=== PATIENT | female | born 1965 | race Hispanic/Latino ===

== ENCOUNTER → 2017-12-08 | Outpatient (CLI) | payer OTHER ==
[~2017-12-08] MED LIST: DOCU100T PO; LACT1CAP68 PO; PANT40TA25 PO; SIMV20TA6 PO; VALS1TAB2 PO
[2017-12-08 16:39] LABS: CREATININE 0.6 mg/dL (0.5-1.5)
== END | disposition home or self-care (01) ==
LOC: LAB 15:49
PROVIDERS: ATTEND Surgery
DX: K43.2 Incisional hernia without obstruction or gangrene (principal)
CPT/HCPCS: 36415; 82565; 84520

== ENCOUNTER → 2017-12-10 | Outpatient (CLI) | payer OTHER ==
[~2017-12-10] MED LIST changes: +IOPAMIDOL-370 75 ML VIAL IV ONE
== END | disposition home or self-care (01) ==
LOC: RAH 07:26
PROVIDERS: ATTEND Surgery
DX: K43.2 Incisional hernia without obstruction or gangrene (principal); K57.30 Diverticulosis of large intestine without perforation or abscess without bleeding; Z90.710 Acquired absence of both cervix and uterus
CPT/HCPCS: 74177; Q9967

== ENCOUNTER 2018-07-28 07:10 | Inpatient (IN) | payer OTHER ==
[~2018-07-28] VITALS: Ht 165.1 cm; Wt 104.3 kg
[~2018-07-28 07:10] MED LIST changes: -IOPAMIDOL-370 75 ML VIAL IV ONE
[2018-07-28] MEDS ORDERED: ONDANSETRON HCL 4 MG/2 ML VIAL ONE ×2 (07:22→10:22)
[2018-07-28] MEDS ORDERED: MORPHINE SULFATE 4 MG/1ML SYG ONE (07:23)
[2018-07-28 07:41] LABS: BASOPHILS % (AUTO) 0.2 % (0.0-5.0); EOSINOPHILS % (AUTO) 0.1 % (0.0-8.0); HEMATOCRIT 43.9 % (36-48); LYMPHOCYTES % (AUTO) 6.8 % (21.0-51.0); MEAN CORPUSCULAR HEMOGLOBIN 29.7 pg (27.0-33.0); MEAN CORPUSCULAR HGB CONC 33.8 g/dL (32.0-36.0); MEAN CORPUSCULAR VOLUME 88.1 fL (79-99); MONOCYTES % (AUTO) 5.1 % (3.0-13.0); NEUTROPHILS % (AUTO) 87.8 % (40.0-77.0); PLATELET COUNT (AUTO) 271 K/uL (130-400); RED BLOOD CELL COUNT(AUTO) 4.98 MIL/uL (4.00-5.50); RED CELL DISTRIBUTION WIDTH 12.8 % (11.0-15.5); WHITE BLOOD COUNT (AUTO) 11.6 K/uL (4.8-10.8)
[2018-07-28 07:46] LABS: CREATININE 0.7 mg/dL (0.5-1.5); POTASSIUM 3.3 mmol/L (3.5-5.1)
[2018-07-28 07:52] LABS: ALBUMIN 4.1 g/dL (3.5-5.0); BILIRUBIN,TOTAL 0.3 mg/dL (0.2-1.0); TOTAL PROTEIN, SERUM 8.5 g/dL (6.0-8.3)
[2018-07-28 07:56] LABS: APPEARANCE,URINE Cloudy (CLEAR); BILIRUBIN,URINE Negative (NEGATIVE); COLOR,URINE Dark Yellow (YELLOW); GLUCOSE, URINE (UA) Negative (NEGATIVE); KETONES,URINE Trace mg/dL (NEGATIVE); LEUKOCYTE ESTERASE ,URINE Small (NEGATIVE); NITRATE,URINE Negative (NEGATIVE); OCCULT BLOOD,URINE Small (NEGATIVE); PROTEIN,URINE POS 2+ (NEGATIVE)
[2018-07-28] MEDS ORDERED: IOHEXOL-350 75 ML VIAL IV ONE (08:09)
[2018-07-28 09:21] LABS: BACTERIA,URINE Rare /HPF (None Seen); SQUAMOUS EPITHELIAL CELL,UR Moderate /HPF (0-2); WBC,URINE 0-1 /HPF (0-1)
[2018-07-28] MEDS ORDERED: LACTATED RINGERS 1000ML 1,000 ML IV ONE (09:53)
[2018-07-28] MEDS ORDERED: MORPHINE SULFATE 2 MG/ML 1ML SYG ONE (10:22)
[2018-07-28 14:30] VITALS: BP 142/83
[2018-07-28] MEDS ORDERED: MORPHINE SULFATE 2 MG/ML 1ML SYG IVP PRN (14:45)
[2018-07-28] MEDS ORDERED: ONDANSETRON HCL MDV 20ML 2 MG/ML VIAL IVP PRN (14:45)
[2018-07-28] MEDS ORDERED: LOSA50TA25 PO (14:55)
[2018-07-28] MEDS ORDERED: LOSA1TAB54 PO (15:26)
[2018-07-28 15:50] VITALS: BP 108/78
[2018-07-28 19:34] VITALS: BP 128/78
[2018-07-28] MEDS: LACTATED RINGERS 1000ML 1,000 ML IV SCH (21:12)
[2018-07-28] MEDS: FAMOTIDINE/PF 20 MG/2 ML VIAL IV SCH (23:12)
[2018-07-28 23:37] VITALS: BP 125/69
[2018-07-29 04:00] VITALS: BP 136/69
[2018-07-29 05:02] LABS: HEMATOCRIT 36.5 % (36-48); MEAN CORPUSCULAR HEMOGLOBIN 30.5 pg (27.0-33.0); MEAN CORPUSCULAR HGB CONC 34.5 g/dL (32.0-36.0); MEAN CORPUSCULAR VOLUME 88.6 fL (79-99); PLATELET COUNT (AUTO) 239 K/uL (130-400); RED BLOOD CELL COUNT(AUTO) 4.12 MIL/uL (4.00-5.50); RED CELL DISTRIBUTION WIDTH 13.4 % (11.0-15.5); WHITE BLOOD COUNT (AUTO) 8.3 K/uL (4.8-10.8)
[2018-07-29 05:17] LABS: CREATININE 0.6 mg/dL (0.5-1.5); POTASSIUM 3.2 mmol/L (3.5-5.1)
[2018-07-29] MEDS: LACTATED RINGERS 1000ML 1,000 ML IV SCH ×3 (05:40→22:45)
[2018-07-29 07:38] VITALS: BP 123/67
[2018-07-29] MEDS: FAMOTIDINE/PF 20 MG/2 ML VIAL IV SCH ×2 (08:36→20:02)
[2018-07-29 12:00] VITALS: BP 129/72
[2018-07-29 16:00] VITALS: BP 137/73
[2018-07-29] MEDS ORDERED: LIDOCAINE HCL-MPF 1% 2ML VIAL IVP PRN (16:00)
[2018-07-29] MEDS: POTASSIUM CHLORIDE 20MEQ/100ML 100 ML IV PRN ×2 (16:28→21:43)
[2018-07-29 19:43] VITALS: BP 135/71
[2018-07-29] MEDS ORDERED: LIDOCAINE HCL-MPF 1% 5ML AMP IJ PRN (20:59)
[2018-07-29] MEDS ORDERED: LIDOCAINE HCL MPF 1% 5ML VIAL ONE (21:40)
[2018-07-30 00:29] VITALS: BP 114/67
[2018-07-30 04:51] VITALS: BP 132/69
[2018-07-30 05:34] LABS: BASOPHILS % (AUTO) 0.5 % (0.0-5.0); EOSINOPHILS % (AUTO) 1.4 % (0.0-8.0); LYMPHOCYTES % (AUTO) 27.9 % (21.0-51.0); MEAN CORPUSCULAR HEMOGLOBIN 29.9 pg (27.0-33.0); MEAN CORPUSCULAR HGB CONC 33.3 g/dL (32.0-36.0); MEAN CORPUSCULAR VOLUME 89.8 fL (79-99); MONOCYTES % (AUTO) 9.5 % (3.0-13.0); NEUTROPHILS % (AUTO) 60.7 % (40.0-77.0); PLATELET COUNT (AUTO) 203 K/uL (130-400); RED BLOOD CELL COUNT(AUTO) 4.01 MIL/uL (4.00-5.50); RED CELL DISTRIBUTION WIDTH 13.3 % (11.0-15.5); WHITE BLOOD COUNT (AUTO) 7.5 K/uL (4.8-10.8)
[2018-07-30 05:48] LABS: CREATININE 0.6 mg/dL (0.5-1.5); POTASSIUM 3.3 mmol/L (3.5-5.1)
[2018-07-30] MEDS: POTASSIUM CHLORIDE 20MEQ/100ML 100 ML IV PRN ×2 (06:25→10:54)
[2018-07-30 08:29] VITALS: BP 137/71
[2018-07-30] MEDS: FAMOTIDINE/PF 20 MG/2 ML VIAL IV SCH ×2 (08:42→19:52)
[2018-07-30] MEDS: LACTATED RINGERS 1000ML 1,000 ML IV SCH ×2 (10:54→19:53)
[2018-07-30 11:57] VITALS: BP 159/88
[2018-07-30] MEDS ORDERED: KETOROLAC TROMETHAMINE 30MG/ML IV PRN (14:15)
[2018-07-30 16:58] VITALS: BP 139/76
[2018-07-30 19:52] VITALS: BP 145/82
[2018-07-31 00:03] VITALS: BP 113/62
[2018-07-31 04:00] VITALS: BP 121/66
[2018-07-31] MEDS: LACTATED RINGERS 1000ML 1,000 ML IV SCH (05:02)
[2018-07-31 06:15] LABS: CREATININE 0.6 mg/dL (0.5-1.5); POTASSIUM 3.7 mmol/L (3.5-5.1)
[2018-07-31 11:51] VITALS: BP 143/85
[2018-07-31 12:02] LABS: BASOPHILS % (AUTO) 0.3 % (0.0-5.0); HEMATOCRIT 34.4 % (36-48); LYMPHOCYTES % (AUTO) 26.8 % (21.0-51.0); MEAN CORPUSCULAR HEMOGLOBIN 31.1 pg (27.0-33.0); MEAN CORPUSCULAR HGB CONC 34.9 g/dL (32.0-36.0); MEAN CORPUSCULAR VOLUME 89.4 fL (79-99); MONOCYTES % (AUTO) 10.3 % (3.0-13.0); NEUTROPHILS % (AUTO) 60.6 % (40.0-77.0); PLATELET COUNT (AUTO) 213 K/uL (130-400); RED BLOOD CELL COUNT(AUTO) 3.85 MIL/uL (4.00-5.50); RED CELL DISTRIBUTION WIDTH 12.9 % (11.0-15.5); WHITE BLOOD COUNT (AUTO) 6.6 K/uL (4.8-10.8)
== END 2018-07-31 13:32 | disposition home or self-care (01) | DRG 395 ==
LOC: EDH 07:10 → EDHIP 09:35 → 4BH 14:06
PROVIDERS: ADMIT Surgery; ATTEND Surgery
PROC: 0D9670Z Drainage of Stomach with Drainage Device, Via Natural or Artificial Opening (ICD-10-PCS; principal; 2018-07-28)
DX: K43.0 Incisional hernia with obstruction, without gangrene (principal); Z90.710 Acquired absence of both cervix and uterus; I10 Essential (primary) hypertension
CPT/HCPCS: 36415; 74021; 74177; 80048; 80053; 81001; 82550; 83690; 84484; 85025; 85027; 93005; J1885; J2270; J2405; J3480; J3490; J7120; Q9967

== ENCOUNTER → 2018-10-19 | Outpatient (CLI) | payer OTHER ==
[~2018-10-19] MED LIST changes: +LOSA1TAB54 PO; -PANT40TA25 PO; -VALS1TAB2 PO
== END | disposition home or self-care (01) ==
LOC: RAH 14:43
DX: Z12.31 Encounter for screening mammogram for malignant neoplasm of breast (principal)
CPT/HCPCS: 77067

== ENCOUNTER 2019-01-12 08:12 | Day surgery (SDC) | payer OTHER ==
[~2019-01-12] VITALS: Ht 160 cm; Wt 107.2 kg
[~2019-01-12 08:12] MED LIST changes: -DOCU100T PO; -LACT1CAP68 PO; +SODIUM CHLORIDE 0.9% 1000ML 1,000 ML IV ONE
[2019-01-12 08:35] VITALS: BP 144/73
[2019-01-12] MEDS ORDERED: PROPOFOL 10 MG/ML 20ML VIAL IV ONE (09:03)
[2019-01-12 09:06] VITALS: BP 98/58
[2019-01-12 09:11] VITALS: BP 110/72
[2019-01-12 09:16] VITALS: BP 125/75
== END 2019-01-12 09:45 | disposition home or self-care (01) ==
LOC: DAH 08:12 → ENDO 08:12
PROVIDERS: ATTEND Internal Medicine
DX: K21.0 Gastro-esophageal reflux disease with esophagitis (principal); K44.9 Diaphragmatic hernia without obstruction or gangrene; K31.7 Polyp of stomach and duodenum; K31.89 Other diseases of stomach and duodenum; I10 Essential (primary) hypertension; E78.5 Hyperlipidemia, unspecified; Z98.890 Other specified postprocedural states; Z90.710 Acquired absence of both cervix and uterus; Z79.899 Other long term (current) drug therapy; Z68.41 Body mass index [BMI] 40.0-44.9, adult; E66.9 Obesity, unspecified
CPT/HCPCS: 43239; A4606; J2704; J7030

== ENCOUNTER 2019-02-09 05:27 | Day surgery (SDC) | payer OTHER ==
[~2019-02-09] VITALS: Ht 160 cm; Wt 104.3 kg
[~2019-02-09 05:27] MED LIST changes: -SODIUM CHLORIDE 0.9% 1000ML 1,000 ML IV ONE
[2019-02-09] MEDS ORDERED: SODIUM CHLORIDE 0.9% 1000ML 1,000 ML IV ONE (05:47)
[2019-02-09 06:00] VITALS: BP 128/78
[2019-02-09] MEDS ORDERED: PROPOFOL 10 MG/ML 20ML VIAL IV ONE (07:12)
[2019-02-09 07:20] VITALS: BP 89/49
[2019-02-09 07:25] VITALS: BP 114/71
[2019-02-09 07:30] VITALS: BP 111/68
--- NOTE | 2019-02-09 07:51 | NUR ---
PT TOLERATED PROCEDURE WELL, NO C/O ABDOMINAL PAIN, POST CARE INSTRUCTIONS GIVEN TO PT AND FAMILY. PT DRIVEN HOME BY FAMILY.
== END 2019-02-09 07:51 | disposition home or self-care (01) ==
LOC: ENDO 05:27 → DAH 05:27 → ENDO 07:51
PROVIDERS: ATTEND Internal Medicine
DX: K63.5 Polyp of colon (principal); K64.0 First degree hemorrhoids; K57.30 Diverticulosis of large intestine without perforation or abscess without bleeding; R19.4 Change in bowel habit; I10 Essential (primary) hypertension; E78.5 Hyperlipidemia, unspecified; Z79.899 Other long term (current) drug therapy; Z68.41 Body mass index [BMI] 40.0-44.9, adult; Z90.710 Acquired absence of both cervix and uterus; Z98.890 Other specified postprocedural states; K44.9 Diaphragmatic hernia without obstruction or gangrene; K21.0 Gastro-esophageal reflux disease with esophagitis
CPT/HCPCS: 45380; A4606; J2704; J7030

== ENCOUNTER → 2019-06-12 | Outpatient (CLI) | payer OTHER | END | disposition home or self-care (01) | LOC: RAH 16:24 | PROVIDERS: ATTEND Physical Medicine & Rehabilitation | DX: M47.812 Spondylosis without myelopathy or radiculopathy, cervical region (principal); M48.02 Spinal stenosis, cervical region | CPT/HCPCS: 72040 ==

== ENCOUNTER → 2019-07-10 | Outpatient (CLI) | payer OTHER | END | disposition home or self-care (01) | LOC: RAH 14:34 | PROVIDERS: ATTEND Physical Medicine & Rehabilitation | DX: M47.22 Other spondylosis with radiculopathy, cervical region (principal); M50.122 Cervical disc disorder at C5-C6 level with radiculopathy | CPT/HCPCS: 72141 ==

== ENCOUNTER → 2019-10-12 | Outpatient (CLI) | payer OTHER ==
[~2019-10-12] MED LIST changes: +SIMV-43 PO; -SIMV20TA6 PO
== END | disposition home or self-care (01) ==
LOC: RAH 16:07
PROVIDERS: ATTEND Physical Medicine & Rehabilitation
DX: M19.011 Primary osteoarthritis, right shoulder (principal)
CPT/HCPCS: 73030

== ENCOUNTER → 2019-10-20 | Outpatient (CLI) | payer OTHER | END | disposition home or self-care (01) | LOC: RAH 15:46 | DX: Z12.31 Encounter for screening mammogram for malignant neoplasm of breast (principal) | CPT/HCPCS: 77067 ==

== ENCOUNTER → 2019-12-25 | Outpatient (CLI) | payer OTHER | END | disposition home or self-care (01) | LOC: RAH 07:22 | PROVIDERS: ATTEND Physical Medicine & Rehabilitation | DX: M75.111 Incomplete rotator cuff tear or rupture of right shoulder, not specified as traumatic (principal); Y93.89 Activity, other specified; Y92.89 Other specified places as the place of occurrence of the external cause; Y99.8 Other external cause status | CPT/HCPCS: 73221 ==

== ENCOUNTER 2020-03-28 09:50 | Day surgery (SDC) | payer OTHER ==
[2020-03-26 09:01] LABS: BASOPHILS % (AUTO) 0.5 % (0.0-5.0); HEMATOCRIT 39.2 % (36-48); LYMPHOCYTES % (AUTO) 32.6 % (21.0-51.0); MEAN CORPUSCULAR HEMOGLOBIN 29.9 pg (27.0-33.0); MEAN CORPUSCULAR HGB CONC 33.9 g/dL (32.0-36.0); MEAN CORPUSCULAR VOLUME 88.1 fL (79-99); MONOCYTES % (AUTO) 8.4 % (3.0-13.0); NEUTROPHILS % (AUTO) 56.2 % (40.0-77.0); PLATELET COUNT (AUTO) 249 K/uL (130-400); RED BLOOD CELL COUNT(AUTO) 4.45 MIL/uL (4.00-5.50); RED CELL DISTRIBUTION WIDTH 13.2 % (11.0-15.5); WHITE BLOOD COUNT (AUTO) 6.5 K/uL (4.8-10.8)
[2020-03-26 09:11] LABS: CREATININE 0.7 mg/dL (0.5-1.5); POTASSIUM 3.3 mmol/L (3.5-5.1)
[2020-03-26 11:29] VITALS: BP 119/76
--- NOTE | 2020-03-26 18:13 | NUR ---
LABS INFORMED DR. MARTIN OF ABNORMAL POTASSIUM. ORDERS RECEIVED TO REDRAW POTASSIUM ON AM OF PROCEDURE AND IF PT TAKE DIURETICS, HOLD ON AM OF PROCEDURE.
[2020-03-28] VITALS (16 sets, daily range): BP systolic 107–135; BP diastolic 62–88
[~2020-03-28] VITALS: Ht 160 cm; Wt 111.4 kg
[~2020-03-28 09:50] MED LIST changes: +CEFAZOLIN SODIUM 1 GM VIAL IVP SCH; +HYDR25TA PO; +LOSA100T58 PO; -LOSA1TAB54 PO; +OMEP20CA12 PO
[2020-03-28] MEDS ORDERED: LACTATED RINGERS 1000ML 1,000 ML IV ONE (13:25)
[2020-03-28] MEDS ORDERED: EPINEPHRINE 1 MG/ML 30ML VIAL IJ ONE (15:18)
[2020-03-28] MEDS ORDERED: SUCCINYLCHOLINE 200MG/10ML SYR ONE (15:45)
[2020-03-28] MEDS ORDERED: ROPIVACAINE 0.5% 5MG/ML 30ML IJ ONE ×2 (15:45→15:48)
[2020-03-28] MEDS ORDERED: LIDOCAINE PF 2% 5ML ABBOJECT ONE (15:45)
[2020-03-28] MEDS ORDERED: PROPOFOL 10 MG/ML 20ML VIAL IV ONE (15:45)
[2020-03-28] MEDS ORDERED: ROCURONIUM 10MG/1ML SYR 10 MG/ML ML ONE (15:48)
[2020-03-28] MEDS ORDERED: FENTANYL CITRATE PF 50 MCG/1 ML 2ML VIAL ONE (15:49)
[2020-03-28] MEDS ORDERED: DEXAMETHASONE SOD PHOSPHATE 4 MG/ML 1ML VIAL ONE (16:14)
[2020-03-28] MEDS ORDERED: GLYCOPYRROLATE 1 MG/5 ML SYRINGE ONE (16:15)
[2020-03-28] MEDS ORDERED: ONDANSETRON HCL 4 MG/2 ML VIAL ONE (16:15)
[2020-03-28] MEDS ORDERED: NEOSTIGMINE 5MG/5ML SYR IV ONE (16:15)
[2020-03-28] MEDS ORDERED: NAPR-1192 PO (17:37)
[2020-03-28] MEDS ORDERED: HYDR-4457 PO (17:37)
[2020-03-28] MEDS ORDERED: CEPH500B PO (17:37)
--- NOTE | 2020-03-28 18:56 | NUR ---
ASSESSMENT RECEIVED PT FROM COURT [place]. PT [id number]. SLING IN PLACE TO RIGHT ARM. DRSG INTACT AND DRY. SOFT TO TOUCH. DENIES PAIN. CALL LIGHT WITHIN REACH.
--- NOTE | 2020-03-28 19:40 | NUR ---
DISCHARGE ORAL AND WRITTEN DISCHARGE INSTRUCTIONS GIVEN TO PT AND PTS SISTER. DRSG INTACT. NO OOZING, BLEEDING NOTED TO SITE. PRESCRIPTIONS GIVEN TO PTS SISTER ALONG WITH ICE PACK. NO OTHER QUESTIONS AT THIS TIME.
== END 2020-03-28 19:40 | disposition home or self-care (01) ==
LOC: DAH 09:50
PROVIDERS: ATTEND Orthopaedic Surgery
DX: M75.111 Incomplete rotator cuff tear or rupture of right shoulder, not specified as traumatic (principal); M75.41 Impingement syndrome of right shoulder; M19.011 Primary osteoarthritis, right shoulder; G89.29 Other chronic pain; I10 Essential (primary) hypertension; E78.5 Hyperlipidemia, unspecified; Z79.899 Other long term (current) drug therapy; Z90.710 Acquired absence of both cervix and uterus
CPT/HCPCS: 29822; 29824; 29826; 36415 ×2; 64415; 76942; 80048; 84132; 85025; A4215 ×2; A4221 ×2; A4222 ×2; A4223 ×2; A4565; A4600 ×2; A4649 ×4; A4663 ×2; A4930; A6204; J0171; J0330; J0690; J1100; J2001; J2405; J2704; J2710; J2795 ×2; J3010; J3490; J7030; J7120

== ENCOUNTER → 2020-08-22 | Outpatient (CLI) | payer OTHER ==
[~2020-08-22] MED LIST changes: -CEFAZOLIN SODIUM 1 GM VIAL IVP SCH; +CEPH500B PO; +HYDR-4457 PO; +NAPR-1192 PO
== END | disposition home or self-care (01) ==
LOC: OIH 15:46
PROVIDERS: ATTEND Family Medicine
DX: R07.9 Chest pain, unspecified (principal)
CPT/HCPCS: 71046

== ENCOUNTER → 2020-10-21 | Outpatient (CLI) | payer OTHER | END | disposition home or self-care (01) | LOC: RAH 15:56 | PROVIDERS: ATTEND Physician Assistant Medical | DX: Z12.31 Encounter for screening mammogram for malignant neoplasm of breast (principal); N64.89 Other specified disorders of breast | CPT/HCPCS: 77067 ==

== ENCOUNTER 2020-11-19 05:59 | Day surgery (SDC) | payer OTHER ==
[~2020-11-19] VITALS: Ht 160 cm; Wt 110.7 kg
[~2020-11-19 05:59] MED LIST changes: -CEPH500B PO; -HYDR-4457 PO
[2020-11-19] MEDS ORDERED: SODIUM CHLORIDE 0.9% 1000ML 1,000 ML IV ONE (06:45)
[2020-11-19 07:09] VITALS: BP 120/74
[2020-11-19] MEDS ORDERED: PROPOFOL 10 MG/ML 20ML VIAL IV ONE ×2 (09:11)
[2020-11-19 09:30] VITALS: BP 111/76
[2020-11-19 09:35] VITALS: BP 112/68
[2020-11-19 09:40] VITALS: BP 110/72
[2020-11-19 09:45] VITALS: BP 118/76
[2020-11-19 09:50] VITALS: BP 113/64
== END 2020-11-19 10:00 | disposition home or self-care (01) ==
LOC: ENDO 05:59 → DAH 05:59 → ENDO 10:00
PROVIDERS: ATTEND Internal Medicine Gastroenterology
DX: R10.13 Epigastric pain (principal); Z20.828 Contact with and (suspected) exposure to other viral communicable diseases; K29.50 Unspecified chronic gastritis without bleeding; K44.9 Diaphragmatic hernia without obstruction or gangrene; K31.89 Other diseases of stomach and duodenum; K59.04 Chronic idiopathic constipation; K21.00 Gastro-esophageal reflux disease with esophagitis, without bleeding; I10 Essential (primary) hypertension; E78.5 Hyperlipidemia, unspecified; E66.9 Obesity, unspecified; Z86.010 Personal history of colon polyps; Z90.49 Acquired absence of other specified parts of digestive tract; Z98.890 Other specified postprocedural states; Z68.44 Body mass index [BMI] 60.0-69.9, adult
CPT/HCPCS: 43239; A4215; A4221; A4222; A4223; A4606; A4620; A4663; C9803; J2704 ×2; J7030; U0003

== ENCOUNTER → 2021-03-13 | Outpatient (CLI) | payer OTHER ==
[~2021-03-13] MED LIST changes: -NAPR-1192 PO
== END | disposition home or self-care (01) ==
LOC: SHCH 14:18
PROVIDERS: ATTEND Internal Medicine Cardiovascular Disease
DX: I87.2 Venous insufficiency (chronic) (peripheral) (principal); I73.9 Peripheral vascular disease, unspecified; R07.9 Chest pain, unspecified; R00.2 Palpitations
CPT/HCPCS: 93306; 93356; 93925; 93970

== ENCOUNTER → 2021-11-10 | Outpatient (CLI) | payer OTHER ==
[2021-11-10 08:33] LABS: BASOPHILS % (AUTO) 0.5 % (0.0-5.0); EOSINOPHILS % (AUTO) 1.9 % (0.0-8.0); HEMATOCRIT 39.7 % (36-48); MEAN CORPUSCULAR HEMOGLOBIN 29.2 pg (27.0-33.0); MEAN CORPUSCULAR HGB CONC 33.5 g/dL (32.0-36.0); MEAN CORPUSCULAR VOLUME 87.3 fL (79-99); MONOCYTES % (AUTO) 9.2 % (3.0-13.0); NEUTROPHILS % (AUTO) 51.2 % (40.0-77.0); PLATELET COUNT (AUTO) 248 K/uL (130-400); RED BLOOD CELL COUNT(AUTO) 4.55 MIL/uL (4.00-5.50); RED CELL DISTRIBUTION WIDTH 13.2 % (11.0-15.5); WHITE BLOOD COUNT (AUTO) 5.7 K/uL (4.8-10.8)
[2021-11-10 08:42] LABS: CREATININE 0.7 mg/dL (0.5-1.5); POTASSIUM 3.2 mmol/L (3.5-5.1)
[2021-11-10 08:47] LABS: ALBUMIN 3.8 g/dL (3.5-5.0); BILIRUBIN,TOTAL 0.5 mg/dL (0.2-1.0); MAGNESIUM 2.4 mg/dL (1.80-2.40); TOTAL PROTEIN, SERUM 7.6 g/dL (6.0-8.3)
[2021-11-10 08:50] LABS: HEMOGLOBIN A1C 6.2 % (4.0-6.0)
== END | disposition home or self-care (01) ==
LOC: LAB 07:32
PROVIDERS: ATTEND Internal Medicine Cardiovascular Disease
DX: E78.2 Mixed hyperlipidemia (principal); I10 Essential (primary) hypertension
CPT/HCPCS: 36415; 80053; 80061; 83036; 83735; 84100; 85025

== ENCOUNTER 2022-02-11 05:50 | Day surgery (SDC) | payer OTHER ==
[~2022-02-11] VITALS: Ht 160 cm; Wt 104.3 kg
[~2022-02-11 05:50] MED LIST changes: +GABA-529 PO; +LINA145C PO
[2022-02-11] MEDS ORDERED: 0.9%NACL 1000ML 1,000 ML IV ONE (06:13)
[2022-02-11 06:15] VITALS: BP 115/72
[2022-02-11] MEDS ORDERED: PHENYLEPHRINE HCL 10 MG/ML 1ML VIAL IV ONE (06:59)
[2022-02-11] MEDS ORDERED: PROPOFOL 10 MG/ML 20ML VIAL IV ONE (06:59)
[2022-02-11] MEDS ORDERED: FAMOTIDINE 20MG VIAL IV ONE (07:03)
[2022-02-11 07:34] VITALS: BP 107/59
[2022-02-11 07:40] VITALS: BP 115/64
[2022-02-11 07:45] VITALS: BP 109/59
[2022-02-11 07:50] VITALS: BP 103/68
[2022-02-11 08:10] VITALS: BP 108/67
== END 2022-02-11 08:10 | disposition home or self-care (01) ==
LOC: DAH 05:50 → ENDO 05:50
PROVIDERS: ATTEND Internal Medicine Gastroenterology
DX: Z12.11 Encounter for screening for malignant neoplasm of colon (principal); Z20.822 Contact with and (suspected) exposure to COVID-19; K62.1 Rectal polyp; K57.30 Diverticulosis of large intestine without perforation or abscess without bleeding; I10 Essential (primary) hypertension; E66.9 Obesity, unspecified; E78.5 Hyperlipidemia, unspecified; K21.00 Gastro-esophageal reflux disease with esophagitis, without bleeding; K59.04 Chronic idiopathic constipation; K43.9 Ventral hernia without obstruction or gangrene; Z79.899 Other long term (current) drug therapy; Z98.890 Other specified postprocedural states; Z98.891 History of uterine scar from previous surgery; Z90.710 Acquired absence of both cervix and uterus; Z79.84 Long term (current) use of oral hypoglycemic drugs; Z86.010 Personal history of colon polyps; Z68.41 Body mass index [BMI] 40.0-44.9, adult
CPT/HCPCS: 45380; 87635; A4215 ×2; A4221; A4222; A4223; A4606; A4620; A4657; A4663; C9803; J2370; J2704; J3490; J7030

== ENCOUNTER 2022-03-05 08:32 | Day surgery (SDC) | payer OTHER ==
[2022-02-27 09:21] LABS: BASOPHILS % (AUTO) 0.5 % (0.0-5.0); LYMPHOCYTES % (AUTO) 32.8 % (21.0-51.0); MEAN CORPUSCULAR HEMOGLOBIN 29.1 pg (27.0-33.0); MEAN CORPUSCULAR HGB CONC 33.8 g/dL (32.0-36.0); MEAN CORPUSCULAR VOLUME 86.2 fL (79-99); MONOCYTES % (AUTO) 7.8 % (3.0-13.0); NEUTROPHILS % (AUTO) 57.7 % (40.0-77.0); PLATELET COUNT (AUTO) 246 K/uL (130-400); RED BLOOD CELL COUNT(AUTO) 4.64 MIL/uL (4.00-5.50); RED CELL DISTRIBUTION WIDTH 13.4 % (11.0-15.5); WHITE BLOOD COUNT (AUTO) 6.1 K/uL (4.8-10.8)
[2022-02-27 09:36] LABS: CREATININE 0.6 mg/dL (0.5-1.5); POTASSIUM 3.1 mmol/L (3.5-5.1)
[2022-03-04 08:29] VITALS: BP 133/76
[~2022-03-05] VITALS: Ht 160 cm; Wt 106.0 kg
[2022-03-05] VITALS (15 sets, daily range): BP systolic 116–140; BP diastolic 73–80
[2022-03-05] MEDS: CEFAZOLIN SODIUM 1 GM VIAL IVP SCH ×2 (06:00→12:30)
[~2022-03-05 08:32] MED LIST changes: +LACTATED RINGERS 1000ML 1,000 ML IV SCH
[2022-03-05] MEDS ORDERED: BUPIVACAINE/EPI/PF 0.5% 30ML VIAL IJ ONE ×2 (09:00→12:00)
[2022-03-05] MEDS ORDERED: LIDOCAINE PF 100MG/5ML (2%) SYRINGE 5ML ONE (10:47)
[2022-03-05] MEDS ORDERED: DEXAMETHASONE SOD PHOSPHATE 10MG/ML 1ML VIAL ONE (10:47)
[2022-03-05] MEDS ORDERED: SUCCINYLCHOLINE CHLORIDE 20 MG/ML 10 ML VIAL ONE (10:47)
[2022-03-05] MEDS ORDERED: PROPOFOL 10 MG/ML 20ML VIAL IV ONE (10:47)
[2022-03-05] MEDS ORDERED: ROCURONIUM 10MG/1ML SYR 10 MG/ML ML ONE ×2 (10:48→13:12)
[2022-03-05] MEDS ORDERED: NEOSTIGMINE 5MG/5ML SYR IV ONE (10:48)
[2022-03-05] MEDS ORDERED: MIDAZOLAM HCL 1 MG/ML 2ML VIAL ONE (10:48)
[2022-03-05] MEDS ORDERED: GLYCOPYRROLATE 1 MG/5 ML SYRINGE ONE (10:48)
[2022-03-05] MEDS ORDERED: FENTANYL CITRATE PF 50 MCG/1 ML 2ML VIAL ONE ×2 (10:49→12:42)
[2022-03-05] MEDS ORDERED: SCOPOLAMINE HYDROBROMIDE 1 EACH ADH..PATCH TD ONE (12:10)
[2022-03-05] MEDS ORDERED: ONDANSETRON 4MG INJ ONE (12:24)
[2022-03-05] MEDS ORDERED: EPHEDRINE SULFATE 50 MG/ML AMPULE ONE (13:09)
[2022-03-05] MEDS ORDERED: MEPERIDINE-PF 25 MG/ML SYG ONE ×3 (13:50→14:49)
== END 2022-03-05 16:05 | disposition home or self-care (01) ==
LOC: DAH 08:32
PROVIDERS: ATTEND Surgery
DX: K43.2 Incisional hernia without obstruction or gangrene (principal); I10 Essential (primary) hypertension; K21.9 Gastro-esophageal reflux disease without esophagitis; G47.33 Obstructive sleep apnea (adult) (pediatric); E78.00 Pure hypercholesterolemia, unspecified; E66.01 Morbid (severe) obesity due to excess calories; Z90.49 Acquired absence of other specified parts of digestive tract; Z90.710 Acquired absence of both cervix and uterus; Z98.890 Other specified postprocedural states; Z68.41 Body mass index [BMI] 40.0-44.9, adult; Z79.01 Long term (current) use of anticoagulants
CPT/HCPCS: 36415; 49560; 49568; 64488; 80048; 85025; 87635; 93005; A4215; A4221; A4222; A4223; A4600; A4606; A4663; A6260; C9803; J0330; J0690; J1100; J2001; J2175 ×3; J2250; J2405; J2704; J2710; J3010 ×2; J3490 ×2; J7120 ×2

== ENCOUNTER → 2022-07-24 | Outpatient (CLI) | payer OTHER ==
[~2022-07-24] MED LIST changes: -GABA-529 PO; -LACTATED RINGERS 1000ML 1,000 ML IV SCH
== END | disposition home or self-care (01) ==
LOC: RAH 14:53
PROVIDERS: ATTEND Internal Medicine Cardiovascular Disease
DX: I87.2 Venous insufficiency (chronic) (peripheral) (principal); I87.1 Compression of vein
CPT/HCPCS: 93970

== ENCOUNTER → 2022-10-20 | Outpatient (CLI) | payer OTHER ==
[~2022-10-20] MED LIST changes: +PANT40TA55 PO; +POTA-187 PO
[2022-10-20 08:39] LABS: HEMOGLOBIN A1C 5.7 % (4.0-6.0)
[2022-10-20 08:48] LABS: ALBUMIN 3.8 g/dL (3.5-5.0); CREATININE 0.7 mg/dL (0.5-1.5); POTASSIUM 3.2 mmol/L (3.5-5.1); THYROID STIMULATING HORMONE 1.75 uIU/mL (0.36-3.74); TOTAL PROTEIN, SERUM 7.9 g/dL (6.0-8.3)
== END | disposition home or self-care (01) ==
LOC: LAB 07:37
PROVIDERS: ATTEND Internal Medicine
DX: I12.9 Hypertensive chronic kidney disease with stage 1 through stage 4 chronic kidney disease, or unspecified chronic kidney disease (principal); Z13.29 Encounter for screening for other suspected endocrine disorder; E88.81 Metabolic syndrome and other insulin resistance
CPT/HCPCS: 36415; 80053; 82043; 83036; 84443

== ENCOUNTER → 2023-04-27 | Outpatient (CLI) | payer OTHER ==
[~2023-04-27] MED LIST changes: -LOSA100T58 PO; +LOSA100T59 PO; +REGADENOSON 0.4 MG/5 ML PF SYG IVP ONE
== END | disposition home or self-care (01) ==
LOC: SHCH 07:57
PROVIDERS: ATTEND Internal Medicine Cardiovascular Disease
DX: R07.9 Chest pain, unspecified (principal); R06.09 Other forms of dyspnea
CPT/HCPCS: 78452; 96374; 93017; J2785; A9500 ×2

== ENCOUNTER → 2023-05-03 | Outpatient (CLI) | payer OTHER ==
[~2023-05-03] MED LIST changes: -REGADENOSON 0.4 MG/5 ML PF SYG IVP ONE
[2023-05-03 08:15] LABS: BASOPHILS % (AUTO) 0.4 % (0.0-5.0); EOSINOPHILS % (AUTO) 1.9 % (0.0-8.0); HEMATOCRIT 40.3 % (36-48); LYMPHOCYTES % (AUTO) 29.6 % (21.0-51.0); MEAN CORPUSCULAR HEMOGLOBIN 29.6 pg (27.0-33.0); MEAN CORPUSCULAR HGB CONC 33.3 g/dL (32.0-36.0); MEAN CORPUSCULAR VOLUME 89.2 fL (79-99); MONOCYTES % (AUTO) 10.1 % (3.0-13.0); NEUTROPHILS % (AUTO) 57.6 % (40.0-77.0); PLATELET COUNT (AUTO) 254 K/uL (130-400); RED BLOOD CELL COUNT(AUTO) 4.52 MIL/uL (4.00-5.50); RED CELL DISTRIBUTION WIDTH 13.2 % (11.0-15.5); WHITE BLOOD COUNT (AUTO) 7.4 K/uL (4.8-10.8)
[2023-05-03 08:30] LABS: HEMOGLOBIN A1C 5.7 % (4.0-6.0)
[2023-05-03 08:38] LABS: APPEARANCE,URINE CLOUDY (CLEAR); BILIRUBIN,URINE NEGATIVE (NEGATIVE); COLOR,URINE YELLOW (YELLOW); GLUCOSE, URINE (UA) NEGATIVE (NEGATIVE); KETONES,URINE NEGATIVE (NEGATIVE); LEUKOCYTE ESTERASE ,URINE 25 Leu/uL (NEGATIVE); NITRATE,URINE NEGATIVE (NEGATIVE); OCCULT BLOOD,URINE SMALL (NEGATIVE); PH,URINE 6.5 (5.0-8.0); PROTEIN,URINE 20 mg/dL (NEGATIVE); UROBILINOGEN,URINE 0.2 mg/dL (0.2-1.0)
[2023-05-03 08:49] LABS: BACTERIA,URINE RARE /HPF (None Seen); MUCUS,URINE RARE LPF (None Seen); SQUAMOUS EPITHELIAL CELL,UR MANY /HPF (0-2)
[2023-05-03 08:51] LABS: CREATININE 0.6 mg/dL (0.5-1.5); POTASSIUM 3.5 mmol/L (3.5-5.1); THYROID STIMULATING HORMONE 2.29 uIU/mL (0.36-3.74); TOTAL PROTEIN, SERUM 7.7 g/dL (6.0-8.3)
== END | disposition home or self-care (01) ==
LOC: LAB 07:44
PROVIDERS: ATTEND Internal Medicine
DX: Z13.29 Encounter for screening for other suspected endocrine disorder (principal)
CPT/HCPCS: 36415; 80053; 80061; 81001; 82043; 83036; 84443; 85025

== ENCOUNTER 2023-06-03 18:41 | Inpatient (IN) | payer OTHER ==
[~2023-06-03] VITALS: Ht 160 cm; Wt 96.2 kg
[2023-06-03 19:36] LABS: BASOPHILS % (AUTO) 0.3 % (0.0-5.0); EOSINOPHILS % (AUTO) 0.8 % (0.0-8.0); HEMATOCRIT 40.5 % (36-48); LYMPHOCYTES % (AUTO) 18.2 % (21.0-51.0); MEAN CORPUSCULAR HEMOGLOBIN 29.8 pg (27.0-33.0); MEAN CORPUSCULAR HGB CONC 34.3 g/dL (32.0-36.0); MEAN CORPUSCULAR VOLUME 86.9 fL (79-99); MONOCYTES % (AUTO) 8.4 % (3.0-13.0); NEUTROPHILS % (AUTO) 71.9 % (40.0-77.0); PLATELET COUNT (AUTO) 299 K/uL (130-400); RED BLOOD CELL COUNT(AUTO) 4.66 MIL/uL (4.00-5.50); RED CELL DISTRIBUTION WIDTH 13.2 % (11.0-15.5); WHITE BLOOD COUNT (AUTO) 14.1 K/uL (4.8-10.8)
[2023-06-03 19:51] LABS: ALANINE AMINOTRANSFERASE 37 U/L (12-78); ALBUMIN 3.8 g/dL (3.5-5.0); ASPARTATE AMINOTRANSFERASE 19 U/L (10-37); CARBON DIOXIDE 30 mmol/L (21-32); CHLORIDE 95 mmol/L (101-111); CREATININE 0.7 mg/dL (0.5-1.5); GLOMERULAR FILTR. RATE CALC 100 mL/min (>90); GLUCOSE,RANDOM 127 mg/dL (70-105); SODIUM SERUM 135 mmol/L (136-145); TOTAL PROTEIN, SERUM 7.7 g/dL (6.0-8.3); UREA NITROGEN, BLOOD 17 mg/dL (7-18)
[2023-06-03 19:55] LABS: LIPASE < 50 U/L (114-286); POTASSIUM 2.8 mmol/L (3.5-5.1)
[2023-06-03] MEDS ORDERED: DIAZEPAM 5 MG/ML 2 ML SYG IVP ONE (20:30)
[2023-06-03] MEDS ORDERED: FAMOTIDINE 20MG VIAL IV ONE (20:30)
[2023-06-03] MEDS ORDERED: ZOSYN 3.375GM +NS 50ML IVPB SCH (20:30)
[2023-06-03] MEDS ORDERED: MORPHINE 4 MG SYG IVP ONE (20:30)
[2023-06-03] MEDS ORDERED: ONDANSETRON 4MG INJ IVP ONE (20:30)
[2023-06-03] MEDS ORDERED: LACTATED RINGERS 1000ML 1,000 ML IV ONE (20:30)
[2023-06-03 20:41] LABS: APPEARANCE,URINE CLOUDY (CLEAR); BILIRUBIN,URINE NEGATIVE (NEGATIVE); COLOR,URINE YELLOW (YELLOW); GLUCOSE, URINE (UA) NEGATIVE (NEGATIVE); KETONES,URINE NEGATIVE (NEGATIVE); LEUKOCYTE ESTERASE ,URINE 250 Leu/uL (NEGATIVE); NITRATE,URINE NEGATIVE (NEGATIVE); OCCULT BLOOD,URINE SMALL (NEGATIVE); PROTEIN,URINE 30 mg/dL (NEGATIVE)
[2023-06-03 20:48] LABS: BACTERIA,URINE MOD /HPF (None Seen); MUCUS,URINE FEW LPF (None Seen); SQUAMOUS EPITHELIAL CELL,UR MOD /HPF (0-2); WBC,URINE 26-50 /HPF (0-1)
[2023-06-03] MEDS ORDERED: IOHEXOL-350 75 ML VIAL IV ONE (20:55)
[2023-06-03] MEDS ORDERED: POTASSIUM BICARB/CIT AC 25 MEQ TABLET.EFF PO ONE (23:30)
[2023-06-04] MEDS ORDERED: ONDANSETRON 4MG INJ IV PRN
[2023-06-04] MEDS ORDERED: 0.9%NACL 1000ML 1,000 ML IV SCH
[2023-06-04] MEDS ORDERED: MORPHINE 4 MG SYG IVP PRN
[2023-06-04] MEDS ORDERED: KCL 20 MEQ ERTAB PO PRN
[2023-06-04] MEDS ORDERED: ACETAMINOPHEN 325 MG TAB PO PRN ×2
[2023-06-04] MEDS ORDERED: MORPHINE 2 MG SYG IVP PRN
[2023-06-04] MEDS ORDERED: POTASSIUM CHLORIDE 20MEQ/100ML 100 ML IV PRN
[2023-06-04 00:05] LABS: MAGNESIUM 2.1 mg/dL (1.80-2.40); THYROID STIMULATING HORMONE 3.39 uIU/mL (0.36-3.74)
[2023-06-04] MEDS ORDERED: LABETALOL 20MG VIAL IV PRN (00:30)
[2023-06-04] MEDS: POTASSIUM CHLORIDE 20MEQ/100ML 100 ML IV PRN ×2 (01:02→08:37)
[2023-06-04 04:11] VITALS: BP 135/73
[2023-06-04] MEDS: ZOSYN 3.375GM+NS 50ML 50 ML IVPB SCH ×3 (04:52→21:01)
[2023-06-04] MEDS ORDERED: LACT1CAP78 PO (05:08)
[2023-06-04] MEDS ORDERED: LINA145C PO (05:08)
[2023-06-04] MEDS ORDERED: IBUP1TAB71 PO (05:08)
[2023-06-04] MEDS ORDERED: SIMV-43 PO (05:08)
[2023-06-04] MEDS ORDERED: GABA-529 PO (05:08)
[2023-06-04] MEDS ORDERED: LOSA100T59 PO (05:08)
[2023-06-04] MEDS ORDERED: OMEP20CA12 PO (05:08)
[2023-06-04] MEDS ORDERED: HYDR25TA PO (05:08)
[2023-06-04] MEDS ORDERED: NAPR220C15 PO (05:08)
[2023-06-04 06:31] LABS: HEMATOCRIT 34.8 % (36-48); MEAN CORPUSCULAR HEMOGLOBIN 29.3 pg (27.0-33.0); MEAN CORPUSCULAR HGB CONC 33.6 g/dL (32.0-36.0); MEAN CORPUSCULAR VOLUME 87.2 fL (79-99); RED BLOOD CELL COUNT(AUTO) 3.99 MIL/uL (4.00-5.50); RED CELL DISTRIBUTION WIDTH 13.2 % (11.0-15.5); WHITE BLOOD COUNT (AUTO) 9.1 K/uL (4.8-10.8)
[2023-06-04 06:40] LABS: CREATININE 0.7 mg/dL (0.5-1.5); MAGNESIUM 1.7 mg/dL (1.80-2.40)
[2023-06-04 07:40] VITALS: BP 119/65
[2023-06-04] MEDS ORDERED: SIMV-46 PO (08:22)
[2023-06-04] MEDS ORDERED: OMEP40CA21 PO (08:24)
[2023-06-04] MEDS: FAMOTIDINE 20MG VIAL IV SCH ×2 (08:37→21:01)
[2023-06-04] MEDS: POTASSIUM CHLORIDE 10% ELIXIR 20 MEQ/15 ML UDCUP PO PRN ×3 (08:37→18:35)
[2023-06-04] MEDS: ENOXAPARIN SODIUM 40 MG/0.4 ML SYRINGE SQ SCH (08:39)
[2023-06-04] MEDS ORDERED: POTASSIUM CHLORIDE 10MEQ/100ML 100 ML IV PRN (09:00)
[2023-06-04] MEDS ORDERED: MAGNESIUM 2GM PREMIX 50ML 50 ML IV PRN ×2 (09:00)
[2023-06-04] MEDS: NS-20 MEQ KCL 1000ML 1,000 ML IV SCH ×2 (10:59→14:51)
[2023-06-04 11:34] VITALS: BP 120/76
[2023-06-04 15:59] VITALS: BP 121/71
[2023-06-04 19:32] VITALS: BP 136/79
[2023-06-04 23:18] VITALS: BP 114/64
[2023-06-05] MEDS: NS-20 MEQ KCL 1000ML 1,000 ML IV SCH ×3 (01:17→18:10)
[2023-06-05 04:00] VITALS: BP 127/76
[2023-06-05] MEDS: ZOSYN 3.375GM+NS 50ML 50 ML IVPB SCH ×3 (05:36→20:17)
[2023-06-05 06:34] LABS: HEMATOCRIT 35.4 % (36-48); MEAN CORPUSCULAR HEMOGLOBIN 29.8 pg (27.0-33.0); MEAN CORPUSCULAR HGB CONC 33.6 g/dL (32.0-36.0); MEAN CORPUSCULAR VOLUME 88.7 fL (79-99); RED BLOOD CELL COUNT(AUTO) 3.99 MIL/uL (4.00-5.50); WHITE BLOOD COUNT (AUTO) 9.4 K/uL (4.8-10.8)
[2023-06-05 06:42] LABS: CREATININE 0.6 mg/dL (0.5-1.5); MAGNESIUM 1.8 mg/dL (1.80-2.40); POTASSIUM 3.5 mmol/L (3.5-5.1)
[2023-06-05 08:00] VITALS: BP 132/71
[2023-06-05] MEDS: FAMOTIDINE 20MG VIAL IV SCH ×2 (09:15→20:17)
[2023-06-05] MEDS: POTASSIUM CHLORIDE 10% ELIXIR 20 MEQ/15 ML UDCUP PO PRN ×2 (09:15→13:56)
[2023-06-05] MEDS: ENOXAPARIN SODIUM 40 MG/0.4 ML SYRINGE SQ SCH (09:16)
[2023-06-05 12:00] VITALS: BP 100/60
[2023-06-05 16:14] VITALS: BP 126/68
[2023-06-05 19:25] VITALS: BP 130/76
[2023-06-05 22:41] VITALS: BP 112/62
[2023-06-06] MEDS: NS-20 MEQ KCL 1000ML 1,000 ML IV SCH (02:52)
[2023-06-06 04:35] VITALS: BP 124/73
[2023-06-06] MEDS: ZOSYN 3.375GM+NS 50ML 50 ML IVPB SCH (05:32)
[2023-06-06 06:25] LABS: HEMATOCRIT 33.8 % (36-48); MEAN CORPUSCULAR HEMOGLOBIN 29.9 pg (27.0-33.0); MEAN CORPUSCULAR HGB CONC 33.7 g/dL (32.0-36.0); MEAN CORPUSCULAR VOLUME 88.7 fL (79-99); RED BLOOD CELL COUNT(AUTO) 3.81 MIL/uL (4.00-5.50); RED CELL DISTRIBUTION WIDTH 13.2 % (11.0-15.5); WHITE BLOOD COUNT (AUTO) 8.3 K/uL (4.8-10.8)
[2023-06-06 06:50] LABS: CREATININE 0.6 mg/dL (0.5-1.5)
[2023-06-06 06:55] LABS: POTASSIUM 3.8 mmol/L (3.5-5.1)
[2023-06-06 07:35] VITALS: BP 135/70
[2023-06-06] MEDS ORDERED: CEPH500C2 PO (08:14)
[2023-06-06] MEDS ORDERED: CEPHALEXIN 500 MG CAPSULE PO SCH (08:30)
[2023-06-06] MEDS ORDERED: PANTOPRAZOLE 40 MG TAB DR PO SCH (09:00)
[2023-06-06] MEDS: ENOXAPARIN SODIUM 40 MG/0.4 ML SYRINGE SQ SCH (09:06)
== END 2023-06-06 10:25 | disposition home or self-care (01) | DRG 389 ==
LOC: EDH 18:41 → EDHIP 23:52 → WSH 06-04 03:55
PROVIDERS: ADMIT Internal Medicine; ATTEND Internal Medicine
PROC: 0D9770Z Drainage of Stomach, Pylorus with Drainage Device, Via Natural or Artificial Opening (ICD-10-PCS; principal; 2023-06-03)
DX: K56.609 Unspecified intestinal obstruction, unspecified as to partial versus complete obstruction (principal); N39.0 Urinary tract infection, site not specified; E66.09 Other obesity due to excess calories; Z68.37 Body mass index [BMI] 37.0-37.9, adult; Z20.822 Contact with and (suspected) exposure to COVID-19; E87.6 Hypokalemia; E88.81 Metabolic syndrome and other insulin resistance; I12.9 Hypertensive chronic kidney disease with stage 1 through stage 4 chronic kidney disease, or unspecified chronic kidney disease; J44.9 Chronic obstructive pulmonary disease, unspecified; K21.9 Gastro-esophageal reflux disease without esophagitis; N18.2 Chronic kidney disease, stage 2 (mild); Z79.899 Other long term (current) drug therapy; Z82.0 Family history of epilepsy and other diseases of the nervous system; Z82.3 Family history of stroke; Z82.49 Family history of ischemic heart disease and other diseases of the circulatory system; Z82.5 Family history of asthma and other chronic lower respiratory diseases; Z83.3 Family history of diabetes mellitus; Z90.710 Acquired absence of both cervix and uterus; Z90.49 Acquired absence of other specified parts of digestive tract
CPT/HCPCS: 36415; 74018; 74177; 80048; 80053; 81001; 82550; 83605; 83690; 83735; 84132; 84443; 85025; 85027; 87040; 87077; 87088; 87186; 87635; G0378; J1650; J2270; J2405; J2543; J3360; J3475; J3480; J3490; J7120; Q9967

== ENCOUNTER 2023-06-18 12:21 | Inpatient (IN) | payer OTHER ==
[~2023-06-18] VITALS: Ht 160 cm; Wt 98.0 kg
[~2023-06-18 12:21] MED LIST changes: +CEPH500C2 PO; +GABA-529 PO; +LACT1CAP78 PO; +NAPR220C15 PO; -OMEP20CA12 PO; +OMEP40CA21 PO; -PANT40TA55 PO; -POTA-187 PO; -SIMV-43 PO; +SIMV-46 PO
[2023-06-18 13:14] LABS: BASOPHILS % (AUTO) 0.9 % (0.0-5.0); EOSINOPHILS % (AUTO) 0.3 % (0.0-8.0); HEMATOCRIT 45.8 % (36-48); LYMPHOCYTES % (AUTO) 5.2 % (21.0-51.0); MEAN CORPUSCULAR HEMOGLOBIN 29.7 pg (27.0-33.0); MEAN CORPUSCULAR HGB CONC 34.7 g/dL (32.0-36.0); MEAN CORPUSCULAR VOLUME 85.4 fL (79-99); MONOCYTES % (AUTO) 2.5 % (3.0-13.0); NEUTROPHILS % (AUTO) 90.5 % (40.0-77.0); PLATELET COUNT (AUTO) 425 K/uL (130-400); RED BLOOD CELL COUNT(AUTO) 5.36 MIL/uL (4.00-5.50); RED CELL DISTRIBUTION WIDTH 13.2 % (11.0-15.5); WHITE BLOOD COUNT (AUTO) 15.5 K/uL (4.8-10.8)
[2023-06-18 13:30] LABS: CARBON DIOXIDE 23 mmol/L (21-32); CHLORIDE 93 mmol/L (101-111); CREATININE 1.4 mg/dL (0.5-1.5); GLOMERULAR FILTR. RATE CALC 43 mL/min (>90); GLUCOSE,RANDOM 198 mg/dL (70-105); POTASSIUM 3.3 mmol/L (3.5-5.1); SODIUM SERUM 132 mmol/L (136-145); UREA NITROGEN, BLOOD 29 mg/dL (7-18)
[2023-06-18] MEDS ORDERED: LACTATED RINGERS 1000ML 1,572 ML IV ONE (13:30)
[2023-06-18] MEDS ORDERED: ZOSYN 3.375GM +NS 50ML IVPB ONE (13:30)
[2023-06-18 13:40] LABS: ALANINE AMINOTRANSFERASE 154 U/L (12-78); ALBUMIN 3.1 g/dL (3.5-5.0); ASPARTATE AMINOTRANSFERASE 260 U/L (10-37); CREATINE KINASE, TOTAL 85 U/L (21-232); MYOGLOBIN 65 ng/mL (10-92); TOTAL PROTEIN, SERUM 7.5 g/dL (6.0-8.3)
[2023-06-18 13:42] LABS: LIPASE < 50 U/L (114-286)
[2023-06-18 13:50] LABS: INR 0.98 (0.85-1.15); PROTHROMBIN TIME 11.4 SEC (9.6-11.6)
[2023-06-18 13:51] LABS: PARTIAL THROMBOPLASTIN TIME 24.9 SEC (26.3-35.5)
[2023-06-18] MEDS ORDERED: IOHEXOL-350 75 ML VIAL IV ONE (13:54)
[2023-06-18] MEDS ORDERED: METOCLOPRAMIDE 10 MG/2 ML VIAL ONE (14:30)
[2023-06-18] MEDS ORDERED: MORPHINE 4 MG SYG IVP ONE (14:30)
[2023-06-18] MEDS ORDERED: METOCLOPRAMIDE 10 MG/2 ML VIAL IVP ONE (14:30)
[2023-06-18] MEDS ORDERED: MORPHINE 4 MG SYG ONE (14:31)
[2023-06-18 18:36] LABS: APPEARANCE,URINE CLEAR (CLEAR); BILIRUBIN,URINE NEGATIVE (NEGATIVE); COLOR,URINE YELLOW (YELLOW); GLUCOSE, URINE (UA) NEGATIVE (NEGATIVE); KETONES,URINE NEGATIVE (NEGATIVE); LEUKOCYTE ESTERASE ,URINE NEGATIVE Leu/uL (NEGATIVE); NITRATE,URINE NEGATIVE (NEGATIVE); PH,URINE 6.5 (5.0-8.0); PROTEIN,URINE 30 mg/dL (NEGATIVE); UROBILINOGEN,URINE 0.2 mg/dL (0.2-1.0)
[2023-06-18 18:40] LABS: BACTERIA,URINE MOD /HPF (None Seen); MUCUS,URINE RARE LPF (None Seen); SQUAMOUS EPITHELIAL CELL,UR MANY /HPF (0-2)
[2023-06-18] MEDS ORDERED: MORPHINE 2 MG SYG IVP ONE (19:00)
[2023-06-18] MEDS ORDERED: ZOSYN 3.375GM +NS 50ML IVPB SCH (19:00)
[2023-06-18] MEDS ORDERED: SUCCINYLCHOLINE CHLORIDE 20 MG/ML 10 ML VIAL ONE (19:27)
[2023-06-18] MEDS ORDERED: ROCURONIUM 10MG/1ML SYR 10 MG/ML ML ONE ×3 (19:28→22:05)
[2023-06-18] MEDS ORDERED: MIDAZOLAM HCL 1 MG/ML 2ML VIAL ONE (19:28)
[2023-06-18] MEDS ORDERED: PROPOFOL 10 MG/ML 20ML VIAL IV ONE (19:28)
[2023-06-18] MEDS ORDERED: FENTANYL CITRATE PF 50 MCG/1 ML 2ML VIAL ONE ×2 (19:28→21:16)
[2023-06-18] MEDS ORDERED: 0.9%NACL 50ML IV SCH (20:00)
[2023-06-18] MEDS ORDERED: PHENYLEPHRINE HCL 10 MG/ML 1ML VIAL IV ONE (20:01)
[2023-06-18] MEDS ORDERED: 0.9% NACL 500ML IV.SOLN 500 ML IV SCH (20:30)
[2023-06-18] MEDS ORDERED: ALBUMIN (HUMAN) 5% 250 ML IV ONE (20:49)
[2023-06-18] MEDS ORDERED: ZOSYN 3.375GM+NS 50ML 50 ML IVPB SCH (21:00)
[2023-06-18] MEDS ORDERED: DEXTROSE 50%-WATER 50 ML DISP.SYRIN IV PRN (21:00)
[2023-06-18] MEDS ORDERED: GLUCAGON 1MG KIT 1 MG ML IM PRN (21:00)
[2023-06-18] MEDS ORDERED: EPHEDRINE SULFATE 50 MG/ML AMPULE ONE (21:01)
[2023-06-18] MEDS ORDERED: PROPOFOL 1000 MG/100 ML 100 ML IV ONE (22:22)
[2023-06-18 23:00] VITALS: BP 87/60; PULSE 129; RESP 19
[2023-06-18 23:01] VITALS: PULSE 125
[2023-06-18 23:45] VITALS: BP 114/64; PULSE 120; RESP 18
[2023-06-19] VITALS (106 sets, daily range): BP systolic 52–127; BP diastolic 47–99; PULSE 77–131; RESP 12–37; TEMP 98.5; O2SAT 95–100
[2023-06-19] MEDS: LACTATED RINGERS 1000ML 1,000 ML IV SCH ×2 (01:53→07:22)
[2023-06-19] MEDS: PROPOFOL 1000 MG/100 ML IV PRN ×3 (02:04→09:20)
[2023-06-19] MEDS: NOREPINEPHRIN 4MG/NS 250ML 250 ML IV SCH ×2 (04:07→21:47)
[2023-06-19] MEDS: METRONIDAZOLE 500MG/100ML BAG 100 ML IVPB SCH ×3 (04:58→22:16)
[2023-06-19 05:06] LABS: BASOPHILS % (AUTO) 0.4 % (0.0-5.0); HEMATOCRIT 38.6 % (36-48); LYMPHOCYTES % (AUTO) 8.1 % (21.0-51.0); MEAN CORPUSCULAR HEMOGLOBIN 30.6 pg (27.0-33.0); MEAN CORPUSCULAR HGB CONC 35.5 g/dL (32.0-36.0); MEAN CORPUSCULAR VOLUME 86.4 fL (79-99); MONOCYTES % (AUTO) 4.4 % (3.0-13.0); NEUTROPHILS % (AUTO) 86.5 % (40.0-77.0); PLATELET COUNT (AUTO) 375 K/uL (130-400); RED BLOOD CELL COUNT(AUTO) 4.47 MIL/uL (4.00-5.50); RED CELL DISTRIBUTION WIDTH 13.3 % (11.0-15.5); WHITE BLOOD COUNT (AUTO) 13.8 K/uL (4.8-10.8)
[2023-06-19] MEDS: ZOSYN 3.375GM +NS 50ML IVPB SCH ×3 (05:19→22:16)
[2023-06-19 05:28] LABS: ALBUMIN 2.1 g/dL (3.5-5.0); MAGNESIUM 1.4 mg/dL (1.80-2.40)
[2023-06-19] MEDS: MAGNESIUM 2GM PREMIX 50ML 50 ML IV PRN (05:40)
[2023-06-19 05:48] LABS: CREATININE 0.9 mg/dL (0.5-1.5); TOTAL PROTEIN, SERUM 5.3 g/dL (6.0-8.3)
[2023-06-19] MEDS: POTASSIUM CHLORIDE 20MEQ/100ML 100 ML IV PRN ×5 (06:08→16:34)
[2023-06-19] MEDS: INSULIN HUMULIN R 100 UNIT/ML 3ML SQ SCH ×5 (07:21→20:36)
[2023-06-19] MEDS: FAMOTIDINE 20MG VIAL IV SCH ×3 (07:23→20:37)
[2023-06-19] MEDS: 0.9%NACL 1000ML 1,000 ML IV SCH ×2 (09:22→17:20)
[2023-06-19] MEDS ORDERED: ACETAMINOPHEN 1,000 MG/100 ML VIAL IV PRN (11:00)
[2023-06-19] MEDS ORDERED: ALBUMIN (HUMAN) 5% 500 ML IV SCH (11:00)
[2023-06-19 11:16] LABS: MAGNESIUM 2.3 mg/dL (1.80-2.40)
[2023-06-19 11:22] LABS: POTASSIUM 2.9 mmol/L (3.5-5.1)
[2023-06-19 12:21] LABS: ABG BASE EXCESS 1.8 mmol/L (-2.0-3.0); ABG HCO3 25.3 mmol/L (21.0-28.0); ABG OXYGEN SATURATION 95.3 % (95.0-99.0); ABG PCO2 36 mmHg (32-45)
[2023-06-19] MEDS: HYDROMORPHONE 1 MG INJ IVP PRN (12:37)
[2023-06-19] MEDS: DEXMEDETOMIDINE 400MCG/NS100ML IV SCH ×2 (13:00→21:28)
[2023-06-19] MEDS ORDERED: 0.9% NACL 500ML IV.SOLN 500 ML IV SCH (13:30)
[2023-06-19 16:03] LABS: INR 1.07 (0.85-1.15); PROTHROMBIN TIME 12.4 SEC (9.6-11.6)
[2023-06-19 16:04] LABS: PARTIAL THROMBOPLASTIN TIME 34.6 SEC (26.3-35.5)
[2023-06-20] VITALS (64 sets, daily range): BP systolic 96–134; BP diastolic 57–78; PULSE 74–107; RESP 15–37; TEMP 99–100; O2SAT 95–98
[2023-06-20] MEDS: HYDROMORPHONE 1 MG INJ IVP PRN (00:32)
[2023-06-20] MEDS: 0.9%NACL 1000ML 1,000 ML IV SCH (02:04)
[2023-06-20 05:02] LABS: BASOPHILS % (AUTO) 0.2 % (0.0-5.0); EOSINOPHILS % (AUTO) 0.1 % (0.0-8.0); HEMATOCRIT 31.9 % (36-48); LYMPHOCYTES % (AUTO) 6.7 % (21.0-51.0); MEAN CORPUSCULAR HGB CONC 32.9 g/dL (32.0-36.0); MEAN CORPUSCULAR VOLUME 88.1 fL (79-99); MONOCYTES % (AUTO) 4.4 % (3.0-13.0); NEUTROPHILS % (AUTO) 87.9 % (40.0-77.0); PLATELET COUNT (AUTO) 207 K/uL (130-400); RED BLOOD CELL COUNT(AUTO) 3.62 MIL/uL (4.00-5.50); RED CELL DISTRIBUTION WIDTH 13.7 % (11.0-15.5); WHITE BLOOD COUNT (AUTO) 11.8 K/uL (4.8-10.8)
[2023-06-20] MEDS: METRONIDAZOLE 500MG/100ML BAG 100 ML IVPB SCH ×3 (05:15→20:38)
[2023-06-20] MEDS: ZOSYN 3.375GM +NS 50ML IVPB SCH ×3 (05:17→20:37)
[2023-06-20] MEDS: DEXMEDETOMIDINE 400MCG/NS100ML IV SCH (05:18)
[2023-06-20 05:26] LABS: CREATININE 0.6 mg/dL (0.5-1.5)
[2023-06-20 05:31] LABS: POTASSIUM 2.9 mmol/L (3.5-5.1)
[2023-06-20] MEDS: POTASSIUM CHLORIDE 20MEQ/100ML 100 ML IV PRN ×4 (05:34→14:42)
[2023-06-20] MEDS: INSULIN HUMULIN R 100 UNIT/ML 3ML SQ SCH ×4 (06:36→21:00)
[2023-06-20] MEDS: NOREPINEPHRIN 4MG/NS 250ML 250 ML IV SCH (07:26)
[2023-06-20] MEDS: FLUCONAZOLE 400 MG/NS 200 ML 200 ML IV SCH (08:21)
[2023-06-20] MEDS: FAMOTIDINE 20MG VIAL IV SCH ×2 (08:25→20:37)
[2023-06-20] MEDS ORDERED: FUROSEMIDE 20MG VIAL ONE (08:48)
[2023-06-20] MEDS ORDERED: ACETAMINOPHEN 650 MG/20.3 ML UDCUP ONE (08:59)
[2023-06-20] MEDS: 0.9%NACL 10ML VIAL IV SCH ×2 (09:00→20:40)
[2023-06-20] MEDS ORDERED: ACETAMINOPHEN 650 MG/20.3 ML UDCUP PEG PRN (09:00)
[2023-06-20] MEDS ORDERED: FUROSEMIDE 20MG VIAL IV ONE (09:00)
[2023-06-20 10:22] LABS: ABG BASE EXCESS -0.6 mmol/L (-2.0-3.0); ABG HCO3 21.6 mmol/L (21.0-28.0); ABG OXYGEN SATURATION 97.2 % (95.0-99.0); ABG PCO2 29 mmHg (32-45)
[2023-06-20 12:06] LABS: MAGNESIUM 1.9 mg/dL (1.80-2.40)
[2023-06-20 12:16] LABS: POTASSIUM 2.8 mmol/L (3.5-5.1)
[2023-06-20] MEDS: MAGNESIUM 2GM PREMIX 50ML 50 ML IV PRN (12:18)
[2023-06-20 12:21] LABS: ABG BASE EXCESS -0.4 mmol/L (-2.0-3.0); ABG HCO3 22.2 mmol/L (21.0-28.0); ABG OXYGEN SATURATION 91.1 % (95.0-99.0); ABG PCO2 30 mmHg (32-45)
[2023-06-20] MEDS ORDERED: KETOROLAC 15MG/ML VIAL (15MG/ML) IV PRN (16:00)
[2023-06-21] VITALS (12 sets, daily range): BP systolic 124–155; BP diastolic 71–88; PULSE 95–110; RESP 18–22; O2SAT 93–95
[2023-06-21 04:42] LABS: BASOPHILS % (AUTO) 0.2 % (0.0-5.0); EOSINOPHILS % (AUTO) 0.1 % (0.0-8.0); LYMPHOCYTES % (AUTO) 7.9 % (21.0-51.0); MEAN CORPUSCULAR HEMOGLOBIN 30.1 pg (27.0-33.0); MEAN CORPUSCULAR HGB CONC 34.5 g/dL (32.0-36.0); MEAN CORPUSCULAR VOLUME 87.1 fL (79-99); MONOCYTES % (AUTO) 6.3 % (3.0-13.0); NEUTROPHILS % (AUTO) 84.5 % (40.0-77.0); PLATELET COUNT (AUTO) 177 K/uL (130-400); RED BLOOD CELL COUNT(AUTO) 3.56 MIL/uL (4.00-5.50); RED CELL DISTRIBUTION WIDTH 14.1 % (11.0-15.5); WHITE BLOOD COUNT (AUTO) 11.9 K/uL (4.8-10.8)
[2023-06-21 05:04] LABS: CREATININE 0.7 mg/dL (0.5-1.5); POTASSIUM 3.1 mmol/L (3.5-5.1)
[2023-06-21] MEDS: METRONIDAZOLE 500MG/100ML BAG 100 ML IVPB SCH ×3 (06:18→21:02)
[2023-06-21] MEDS: ZOSYN 3.375GM +NS 50ML IVPB SCH ×3 (06:19→22:47)
[2023-06-21] MEDS: POTASSIUM CHLORIDE 20MEQ/100ML 100 ML IV PRN ×3 (07:17→20:41)
[2023-06-21] MEDS: INSULIN HUMULIN R 100 UNIT/ML 3ML SQ SCH ×4 (07:30→21:00)
[2023-06-21] MEDS ORDERED: LORAZEPAM 2 MG/ML 1 ML VIAL IVP PRN (09:30)
[2023-06-21] MEDS ORDERED: TRAM50TA4 PO (09:38)
[2023-06-21] MEDS ORDERED: FAMO40TA7 PO (09:38)
[2023-06-21] MEDS: FAMOTIDINE 20MG VIAL IV SCH ×2 (09:53→20:41)
[2023-06-21] MEDS: FLUCONAZOLE 400 MG/NS 200 ML 200 ML IV SCH (09:57)
[2023-06-21] MEDS: 0.9%NACL 10ML VIAL IV SCH ×2 (09:57→20:41)
[2023-06-21 17:20] LABS: ABG BASE EXCESS -2.9 mmol/L (-2.0-3.0); ABG PCO2 27 mmHg (32-45)
[2023-06-21] MEDS: ZOLPIDEM TARTRATE 5 MG TAB PO PRN (20:41)
[2023-06-22] MEDS: POTASSIUM CHLORIDE 20MEQ/100ML 100 ML IV PRN ×2 (00:09→04:33)
[2023-06-22] MEDS ORDERED: KCL 20 MEQ ERTAB PO PRN (02:00)
[2023-06-22] MEDS ORDERED: POTASSIUM CHLORIDE 10% ELIXIR 20 MEQ/15 ML UDCUP PO PRN (02:00)
[2023-06-22] MEDS ORDERED: MAGNESIUM 2GM PREMIX 50ML 50 ML IV PRN (02:00)
[2023-06-22] MEDS ORDERED: POTASSIUM CHLORIDE 20MEQ/100ML 100 ML IV PRN ×2 (02:00)
[2023-06-22] MEDS ORDERED: TRAMADOL HCL 50 MG TABLET PO PRN (02:30)
[2023-06-22] MEDS ORDERED: ACETAMINOPHEN 500 MG TABLET PO PRN (02:30)
[2023-06-22 03:40] LABS: BASOPHILS % (AUTO) 0.2 % (0.0-5.0); EOSINOPHILS % (AUTO) 0.3 % (0.0-8.0); HEMATOCRIT 30.3 % (36-48); LYMPHOCYTES % (AUTO) 8.8 % (21.0-51.0); MEAN CORPUSCULAR HEMOGLOBIN 28.7 pg (27.0-33.0); MEAN CORPUSCULAR VOLUME 86.8 fL (79-99); MONOCYTES % (AUTO) 10.6 % (3.0-13.0); NEUTROPHILS % (AUTO) 78.8 % (40.0-77.0); PLATELET COUNT (AUTO) 199 K/uL (130-400); RED BLOOD CELL COUNT(AUTO) 3.49 MIL/uL (4.00-5.50); RED CELL DISTRIBUTION WIDTH 14.4 % (11.0-15.5); WHITE BLOOD COUNT (AUTO) 12.2 K/uL (4.8-10.8)
[2023-06-22 03:56] LABS: CREATININE 0.5 mg/dL (0.5-1.5); POTASSIUM 3.5 mmol/L (3.5-5.1)
[2023-06-22 04:00] VITALS: BP 142/76; PULSE 101; RESP 18
[2023-06-22] MEDS: ZOSYN 3.375GM +NS 50ML IVPB SCH ×3 (05:13→21:05)
[2023-06-22] MEDS: METRONIDAZOLE 500MG/100ML BAG 100 ML IVPB SCH (05:13)
[2023-06-22] MEDS: INSULIN HUMULIN R 100 UNIT/ML 3ML SQ SCH ×4 (07:30→21:00)
[2023-06-22 08:30] VITALS: BP 152/83; PULSE 95; RESP 18
[2023-06-22] MEDS: LOSARTAN 100 MG TABLET PO SCH ×2 (08:32→20:21)
[2023-06-22] MEDS: 0.9%NACL 10ML VIAL IV SCH ×2 (08:32→20:21)
[2023-06-22] MEDS: FLUCONAZOLE 400 MG/NS 200 ML 200 ML IV SCH (08:32)
[2023-06-22] MEDS: FAMOTIDINE 20MG VIAL IV SCH (08:32)
[2023-06-22 09:00] VITALS: O2SAT 96
[2023-06-22] MEDS: PANTOPRAZOLE 40 MG TAB DR PO SCH (09:52)
[2023-06-22 12:44] VITALS: BP 131/75; PULSE 91; RESP 18
[2023-06-22 16:30] VITALS: BP 140/77; PULSE 92; RESP 18
[2023-06-22 20:00] VITALS: BP 135/78; PULSE 104; RESP 20; O2SAT 96
[2023-06-22] MEDS: DOCUSATE SODIUM 100 MG CAP PO SCH (20:22)
[2023-06-22] MEDS: ZOLPIDEM TARTRATE 5 MG TAB PO PRN (20:48)
[2023-06-23] VITALS (7 sets, daily range): BP systolic 113–144; BP diastolic 75–83; PULSE 58–101; RESP 18–20; O2SAT 95–96
[2023-06-23 03:41] LABS: HEMATOCRIT 29.4 % (36-48); MEAN CORPUSCULAR HEMOGLOBIN 29.5 pg (27.0-33.0); MEAN CORPUSCULAR VOLUME 86.7 fL (79-99); RED BLOOD CELL COUNT(AUTO) 3.39 MIL/uL (4.00-5.50); RED CELL DISTRIBUTION WIDTH 14.4 % (11.0-15.5); WHITE BLOOD COUNT (AUTO) 13.7 K/uL (4.8-10.8)
[2023-06-23 03:53] LABS: CREATININE 0.5 mg/dL (0.5-1.5); POTASSIUM 3.3 mmol/L (3.5-5.1)
[2023-06-23] MEDS: POTASSIUM CHLORIDE 20MEQ/100ML 100 ML IV PRN ×2 (04:30→10:37)
[2023-06-23] MEDS: ZOSYN 3.375GM +NS 50ML IVPB SCH (06:19)
[2023-06-23] MEDS: INSULIN HUMULIN R 100 UNIT/ML 3ML SQ SCH ×2 (07:13→11:30)
[2023-06-23] MEDS: FLUCONAZOLE 400 MG/NS 200 ML 200 ML IV SCH (08:53)
[2023-06-23] MEDS: PANTOPRAZOLE 40 MG TAB DR PO SCH (08:53)
[2023-06-23] MEDS: DOCUSATE SODIUM 100 MG CAP PO SCH (08:53)
[2023-06-23] MEDS: 0.9%NACL 10ML VIAL IV SCH (08:53)
[2023-06-23] MEDS: LOSARTAN 100 MG TABLET PO SCH (08:55)
[2023-06-23] MEDS ORDERED: LOPERAMIDE HCL 2 MG CAP PO ONE (10:00)
[2023-06-23] MEDS ORDERED: LACTOBACILLUS RHAMNOSUS GG 1 EACH CAP.SPRINK PO SCH (10:00)
[2023-06-23] MEDS ORDERED: METR-172 PO (15:58)
[2023-06-23] MEDS ORDERED: LEVO-70 PO (15:58)
== END 2023-06-23 18:34 | disposition home or self-care (01) | DRG 853 ==
LOC: EDH 12:21 → EDHIP 18:48 → 2CV 23:00 → 2DH 06-20 17:39
PROVIDERS: ADMIT Hospitalist; ATTEND Hospitalist
PROC: 5A1935Z Respiratory Ventilation, Less than 24 Consecutive Hours (ICD-10-PCS; 2023-06-18)
PROC: 5A09357 Assistance with Respiratory Ventilation, Less than 24 Consecutive Hours, Continuous Positive Airway Pressure (ICD-10-PCS; 2023-06-18)
PROC: 0WUF0JZ Supplement Abdominal Wall with Synthetic Substitute, Open Approach (ICD-10-PCS; principal; 2023-06-18 19:48)
PROC: 0DN80ZZ Release Small Intestine, Open Approach (ICD-10-PCS; 2023-06-18 19:48)
PROC: 0DB80ZZ Excision of Small Intestine, Open Approach (ICD-10-PCS; 2023-06-18 19:48)
PROC: 0BH17EZ Insertion of Endotracheal Airway into Trachea, Via Natural or Artificial Opening (ICD-10-PCS; 2023-06-18 19:48)
PROC: 5A1935Z Respiratory Ventilation, Less than 24 Consecutive Hours (ICD-10-PCS; 2023-06-19)
DX: A41.9 Sepsis, unspecified organism (principal); J96.01 Acute respiratory failure with hypoxia; K63.1 Perforation of intestine (nontraumatic); K65.9 Peritonitis, unspecified; R65.21 Severe sepsis with septic shock; K43.6 Other and unspecified ventral hernia with obstruction, without gangrene; K66.0 Peritoneal adhesions (postprocedural) (postinfection); D75.839 Thrombocytosis, unspecified; E11.22 Type 2 diabetes mellitus with diabetic chronic kidney disease; E11.65 Type 2 diabetes mellitus with hyperglycemia; E66.9 Obesity, unspecified; E88.81 Metabolic syndrome and other insulin resistance; I12.9 Hypertensive chronic kidney disease with stage 1 through stage 4 chronic kidney disease, or unspecified chronic kidney disease; K21.9 Gastro-esophageal reflux disease without esophagitis; E78.5 Hyperlipidemia, unspecified; K45.8 Other specified abdominal hernia without obstruction or gangrene; N18.2 Chronic kidney disease, stage 2 (mild); Z68.38 Body mass index [BMI] 38.0-38.9, adult; Z82.0 Family history of epilepsy and other diseases of the nervous system; Z82.3 Family history of stroke; Z82.49 Family history of ischemic heart disease and other diseases of the circulatory system; Z82.5 Family history of asthma and other chronic lower respiratory diseases; Z83.3 Family history of diabetes mellitus; Z79.899 Other long term (current) drug therapy
CPT/HCPCS: 36415; 36600; 71045; 74177; 80048; 80053; 81001; 82435; 82550; 82803; 82947; 82948; 83036; 83605; 83630; 83690; 83735; 83874; 84132; 84295; 84484; 85018; 85025; 85027; 85610; 85730; 87040; 87071; 87077; 87088; 87186; 87205; 92610; 93005; 94002; 94003; 94150; A6250; C1751; C1894; G0378; J0330; J1170; J1450; J1885; J1940; J2250; J2270; J2371; J2543; J2704; J2765; J3010; J3475; J3480; J3490; J7120; P9045; Q9967; A4222; A4223; A4452; A4600; A4649; A9900; G8980-CI; G8983-CI

== ENCOUNTER → 2023-07-13 | Outpatient (CLI) | payer OTHER ==
[~2023-07-13] MED LIST changes: -CEPH500C2 PO; +FAMO40TA7 PO; +LEVO-70 PO; -LINA145C PO; +METR-172 PO; -NAPR220C15 PO; +TRAM50TA4 PO
[2023-07-13 13:53] LABS: BASOPHILS # (AUTO) 0.02 K/uL (0.00-0.20); BASOPHILS % (AUTO) 0.2 % (0.0-5.0); EOSINOPHILS # (AUTO) 0.09 K/uL (0.00-0.70); EOSINOPHILS % (AUTO) 1.1 % (0.0-8.0); HEMATOCRIT 35.3 % (36-48); IMMATURE GRANULOCYTE ABSOLUTE 0.04 K/uL (0-1); LYMPHOCYTES # (AUTO) 2.2 K/uL (1.0-4.8); LYMPHOCYTES % (AUTO) 26.4 % (21.0-51.0); MEAN CORPUSCULAR HEMOGLOBIN 29.3 pg (27.0-33.0); MEAN CORPUSCULAR HGB CONC 33.1 g/dL (32.0-36.0); MEAN CORPUSCULAR VOLUME 88.3 fL (79-99); MONOCYTES # (AUTO) 0.8 K/uL (0.1-1.0); MONOCYTES % (AUTO) 9.9 % (3.0-13.0); NEUTROPHILS # (AUTO) 5.1 K/uL (1.8-7.7); NEUTROPHILS % (AUTO) 61.9 % (40.0-77.0); PLATELET COUNT (AUTO) 296 K/uL (130-400); RED CELL DISTRIBUTION WIDTH 14.4 % (11.0-15.5); WHITE BLOOD COUNT (AUTO) 8.2 K/uL (4.8-10.8)
[2023-07-13 14:05] LABS: ALBUMIN 3.2 g/dL (3.5-5.0); BILIRUBIN,TOTAL 0.4 mg/dL (0.2-1.0); CREATININE 0.7 mg/dL (0.5-1.5); POTASSIUM 3.1 mmol/L (3.5-5.1); TOTAL PROTEIN, SERUM 8.2 g/dL (6.0-8.3)
== END | disposition home or self-care (01) ==
LOC: LAB 12:36
PROVIDERS: ATTEND Internal Medicine
DX: I11.9 Hypertensive heart disease without heart failure (principal); R09.1 Pleurisy; E78.2 Mixed hyperlipidemia
CPT/HCPCS: 36415; 71046; 80053; 85025; 85378

== ENCOUNTER → 2023-07-14 | Outpatient (CLI) | payer OTHER ==
[~2023-07-14] MED LIST changes: +IOHEXOL-350 75 ML VIAL IV ONE
== END | disposition home or self-care (01) ==
LOC: RAH 09:53
PROVIDERS: ATTEND Internal Medicine
DX: J98.11 Atelectasis (principal); R07.81 Pleurodynia; R79.1 Abnormal coagulation profile
CPT/HCPCS: 71270; Q9967

== ENCOUNTER → 2023-07-21 | Outpatient (CLI) | payer OTHER ==
[~2023-07-21] MED LIST changes: -IOHEXOL-350 75 ML VIAL IV ONE
[2023-07-21 12:06] LABS: CREATININE 0.7 mg/dL (0.5-1.5); POTASSIUM 3.6 mmol/L (3.5-5.1)
== END | disposition home or self-care (01) ==
LOC: LAB 11:10
PROVIDERS: ATTEND Internal Medicine
DX: E87.6 Hypokalemia (principal)
CPT/HCPCS: 36415; 80048

== ENCOUNTER → 2023-11-09 | Outpatient (CLI) | payer OTHER ==
[2023-11-09 08:26] LABS: HEMOGLOBIN A1C 5.7 % (4.0-6.0)
[2023-11-09 08:50] LABS: ALBUMIN 3.4 g/dL (3.5-5.0); BILIRUBIN,TOTAL 0.5 mg/dL (0.2-1.0); CREATININE 0.6 mg/dL (0.5-1.5); POTASSIUM 3.8 mmol/L (3.5-5.1); TOTAL PROTEIN, SERUM 7.6 g/dL (6.0-8.3)
== END | disposition home or self-care (01) ==
LOC: LAB 07:45
PROVIDERS: ATTEND Internal Medicine
DX: Z13.1 Encounter for screening for diabetes mellitus (principal); E78.2 Mixed hyperlipidemia
CPT/HCPCS: 36415; 80053; 80061; 83036

== ENCOUNTER → 2023-12-22 | Outpatient (CLI) | payer OTHER | END | disposition home or self-care (01) | LOC: RAH 15:16 | PROVIDERS: ATTEND Obstetrics & Gynecology | DX: Z12.31 Encounter for screening mammogram for malignant neoplasm of breast (principal); D24.1 Benign neoplasm of right breast; N63.20 Unspecified lump in the left breast, unspecified quadrant; R92.333 Mammographic heterogeneous density, bilateral breasts | CPT/HCPCS: 77067 ==

== ENCOUNTER → 2024-05-18 | Outpatient (CLI) | payer OTHER ==
[2024-05-18 07:32] LABS: BASOPHILS # (AUTO) 0.02 K/uL (0.00-0.20); BASOPHILS % (AUTO) 0.3 % (0.0-5.0); EOSINOPHILS # (AUTO) 0.12 K/uL (0.00-0.70); HEMATOCRIT 38.5 % (36-48); IMMATURE GRANULOCYTE ABSOLUTE 0.02 K/uL (0-1); LYMPHOCYTES # (AUTO) 2.2 K/uL (1.0-4.8); LYMPHOCYTES % (AUTO) 35.3 % (21.0-51.0); MEAN CORPUSCULAR HGB CONC 34.3 g/dL (32.0-36.0); MEAN CORPUSCULAR VOLUME 87.5 fL (79-99); MONOCYTES # (AUTO) 0.6 K/uL (0.1-1.0); NEUTROPHILS # (AUTO) 3.3 K/uL (1.8-7.7); NEUTROPHILS % (AUTO) 53.1 % (40.0-77.0); PLATELET COUNT (AUTO) 219 K/uL (130-400); RED CELL DISTRIBUTION WIDTH 12.9 % (11.0-15.5); WHITE BLOOD COUNT (AUTO) 6.1 K/uL (4.8-10.8)
[2024-05-18 07:40] LABS: HEMOGLOBIN A1C 5.9 % (4.0-6.0)
[2024-05-18 07:42] LABS: ALBUMIN 3.6 g/dL (3.5-5.0); BILIRUBIN,TOTAL 0.5 mg/dL (0.2-1.0); CREATININE 0.7 mg/dL (0.5-1.0); POTASSIUM 3.6 mmol/L (3.5-5.1); TOTAL PROTEIN, SERUM 7.6 g/dL (6.0-8.3)
== END | disposition home or self-care (01) ==
LOC: LAB 06:59
PROVIDERS: ATTEND Internal Medicine
DX: I11.9 Hypertensive heart disease without heart failure (principal); E87.6 Hypokalemia; E88.810 Metabolic syndrome; E78.2 Mixed hyperlipidemia
CPT/HCPCS: 36415; 80053; 80061; 82043; 82570; 83036; 85025

== ENCOUNTER → 2024-06-08 | Outpatient (CLI) | payer OTHER ==
[~2024-06-08] MED LIST changes: +IOHEXOL-350 75 ML VIAL IV ONE
== END | disposition home or self-care (01) ==
LOC: RAH 07:52
PROVIDERS: ATTEND Surgery
DX: K42.9 Umbilical hernia without obstruction or gangrene (principal); K43.9 Ventral hernia without obstruction or gangrene; K44.9 Diaphragmatic hernia without obstruction or gangrene; M47.815 Spondylosis without myelopathy or radiculopathy, thoracolumbar region; I70.90 Unspecified atherosclerosis
CPT/HCPCS: 74177; Q9967

== ENCOUNTER 2024-09-02 11:18 | Emergency (ER) | payer OTHER ==
[~2024-09-02] VITALS: Ht 160 cm; Wt 98.9 kg
[~2024-09-02 11:18] MED LIST changes: -IOHEXOL-350 75 ML VIAL IV ONE
[2024-09-02 11:42] LABS: BASOPHILS # (AUTO) 0.02 K/uL (0.00-0.20); BASOPHILS % (AUTO) 0.3 % (0.0-5.0); EOSINOPHILS # (AUTO) 0.11 K/uL (0.00-0.70); EOSINOPHILS % (AUTO) 1.4 % (0.0-8.0); HEMATOCRIT 39.3 % (36-48); IMMATURE GRANULOCYTE ABSOLUTE 0.03 K/uL (0-1); LYMPHOCYTES # (AUTO) 2.2 K/uL (1.0-4.8); LYMPHOCYTES % (AUTO) 28.6 % (21.0-51.0); MEAN CORPUSCULAR HEMOGLOBIN 30.3 pg (27.0-33.0); MEAN CORPUSCULAR HGB CONC 34.6 g/dL (32.0-36.0); MEAN CORPUSCULAR VOLUME 87.5 fL (79-99); MONOCYTES # (AUTO) 0.6 K/uL (0.1-1.0); MONOCYTES % (AUTO) 8.2 % (3.0-13.0); NEUTROPHILS # (AUTO) 4.7 K/uL (1.8-7.7); NEUTROPHILS % (AUTO) 61.1 % (40.0-77.0); PLATELET COUNT (AUTO) 240 K/uL (130-400); RED BLOOD CELL COUNT(AUTO) 4.49 MIL/uL (4.00-5.50); RED CELL DISTRIBUTION WIDTH 12.7 % (11.0-15.5); WHITE BLOOD COUNT (AUTO) 7.7 K/uL (4.8-10.8)
[2024-09-02 11:50] LABS: CREATININE 0.7 mg/dL (0.5-1.0); POTASSIUM 3.2 mmol/L (3.5-5.1)
[2024-09-02 11:55] LABS: MAGNESIUM 2.1 mg/dL (1.80-2.40)
[2024-09-02 12:24] LABS: B-TYPE NATRIURETIC PEPTIDE 16 pg/mL (0-100)
[2024-09-02] MEDS: PoTASSium BIcarbonate/CIT AC 25 MEQ TABLET.EFF PO ONE (13:54)
[2024-09-02 14:01] VITALS: BP 138/74; PULSE 82; RESP 18; TEMP 98.2; O2SAT 97
== END 2024-09-02 14:04 | disposition home or self-care (01) ==
LOC: EDH 11:18
DX: R07.89 Other chest pain (principal); E87.6 Hypokalemia; I10 Essential (primary) hypertension; Z79.899 Other long term (current) drug therapy
CPT/HCPCS: 36415; 71045; 80048; 82550; 83735; 83880; 84484; 85025; 93005

== ENCOUNTER → 2024-09-28 | Outpatient (CLI) | payer OTHER ==
[2024-09-28 08:20] LABS: BASOPHILS # (AUTO) 0.02 K/uL (0.00-0.20); BASOPHILS % (AUTO) 0.3 % (0.0-5.0); EOSINOPHILS # (AUTO) 0.08 K/uL (0.00-0.70); EOSINOPHILS % (AUTO) 1.2 % (0.0-8.0); IMMATURE GRANULOCYTE ABSOLUTE 0.03 K/uL (0-1); LYMPHOCYTES # (AUTO) 2.1 K/uL (1.0-4.8); LYMPHOCYTES % (AUTO) 31.4 % (21.0-51.0); MEAN CORPUSCULAR HEMOGLOBIN 30.3 pg (27.0-33.0); MEAN CORPUSCULAR HGB CONC 33.8 g/dL (32.0-36.0); MEAN CORPUSCULAR VOLUME 89.7 fL (79-99); MONOCYTES # (AUTO) 0.7 K/uL (0.1-1.0); MONOCYTES % (AUTO) 10.4 % (3.0-13.0); NEUTROPHILS # (AUTO) 3.7 K/uL (1.8-7.7); NEUTROPHILS % (AUTO) 56.2 % (40.0-77.0); PLATELET COUNT (AUTO) 244 K/uL (130-400); RED BLOOD CELL COUNT(AUTO) 4.46 MIL/uL (4.00-5.50); RED CELL DISTRIBUTION WIDTH 12.7 % (11.0-15.5); WHITE BLOOD COUNT (AUTO) 6.6 K/uL (4.8-10.8)
[2024-09-28 08:34] LABS: ALBUMIN 3.7 g/dL (3.5-5.0); BILIRUBIN,TOTAL 0.6 mg/dL (0.2-1.0); CREATININE 0.7 mg/dL (0.5-1.0); POTASSIUM 3.3 mmol/L (3.5-5.1); TOTAL PROTEIN, SERUM 7.6 g/dL (6.0-8.3)
[2024-09-28 08:37] LABS: INR <= 0.93 (0.85-1.15)
[2024-09-28 08:38] LABS: PARTIAL THROMBOPLASTIN TIME 25.3 SEC (26.3-35.5)
== END | disposition home or self-care (01) ==
LOC: LAB 07:10
PROVIDERS: ATTEND Internal Medicine
DX: Z01.818 Encounter for other preprocedural examination (principal); I11.9 Hypertensive heart disease without heart failure; E78.2 Mixed hyperlipidemia; E88.810 Metabolic syndrome
CPT/HCPCS: 36415; 80053; 85025; 85610; 85730; 93005

== ENCOUNTER 2024-10-12 07:49 | Inpatient (IN) | payer OTHER ==
[2024-10-09 11:30] VITALS: BP 156/76; PULSE 78; RESP 18; TEMP 98.1
[2024-10-09 11:32] LABS: BASOPHILS # (AUTO) 0.03 K/uL (0.00-0.20); BASOPHILS % (AUTO) 0.4 % (0.0-5.0); EOSINOPHILS # (AUTO) 0.08 K/uL (0.00-0.70); HEMATOCRIT 39.8 % (36-48); IMMATURE GRANULOCYTE ABSOLUTE 0.02 K/uL (0-1); LYMPHOCYTES % (AUTO) 26.2 % (21.0-51.0); MEAN CORPUSCULAR HEMOGLOBIN 30.4 pg (27.0-33.0); MEAN CORPUSCULAR HGB CONC 33.4 g/dL (32.0-36.0); MEAN CORPUSCULAR VOLUME 90.9 fL (79-99); MONOCYTES # (AUTO) 0.7 K/uL (0.1-1.0); MONOCYTES % (AUTO) 9.2 % (3.0-13.0); NEUTROPHILS # (AUTO) 4.9 K/uL (1.8-7.7); NEUTROPHILS % (AUTO) 62.9 % (40.0-77.0); PLATELET COUNT (AUTO) 246 K/uL (130-400); RED BLOOD CELL COUNT(AUTO) 4.38 MIL/uL (4.00-5.50); WHITE BLOOD COUNT (AUTO) 7.7 K/uL (4.8-10.8)
[2024-10-09 11:40] LABS: CREATININE 0.7 mg/dL (0.5-1.0); POTASSIUM 3.6 mmol/L (3.5-5.1)
[2024-10-12] VITALS (25 sets, daily range): BP systolic 116–145; BP diastolic 63–83; PULSE 69–102; RESP 17–25; TEMP 97.5–98.5; O2SAT 98
[~2024-10-12] VITALS: Ht 160 cm; Wt 102.1 kg
[~2024-10-12 07:49] MED LIST changes: -FAMO40TA7 PO; -LEVO-70 PO; -METR-172 PO; -TRAM50TA4 PO
[2024-10-12] MEDS ORDERED: LIDOCAINE PF 100MG/5ML (2%) SYRINGE 5ML ONE (08:48)
[2024-10-12] MEDS ORDERED: MIDAZOLAM HCL 1 MG/ML 2ML VIAL ONE (08:50)
[2024-10-12] MEDS ORDERED: FENTanyl CITRate PF 50 MCG/1 ML 2ML VIAL ONE (08:50)
[2024-10-12] MEDS ORDERED: proPOFol 10 MG/ML 20ML VIAL IV ONE (08:50)
[2024-10-12] MEDS ORDERED: rocuRONium bROMide 10MG/1ML 5ML VL ONE ×2 (08:50→09:59)
[2024-10-12] MEDS: LACTATED RINGERS 1000ML 1,000 ML IV ONE (09:10)
[2024-10-12] MEDS: ceFAZolin SODIUM 2 GM VIAL ONE (09:10)
[2024-10-12] MEDS: ceFAZolin SODIUM 1 GM VIAL ONE (09:10)
[2024-10-12 09:20] LABS: INR 0.94 (0.85-1.15); PROTHROMBIN TIME 10.2 SEC (9.6-11.6)
[2024-10-12 09:21] LABS: PARTIAL THROMBOPLASTIN TIME 25.1 SEC (26.3-35.5)
[2024-10-12] MEDS ORDERED: ROPivacaine 0.5% 5MG/ML 30ML ONE (09:25)
[2024-10-12] MEDS: ceFAZolin SODIUM 3 GM VIAL IVPB ONE (09:35)
[2024-10-12] MEDS ORDERED: dexaMETHasone SOD PHOSPHATE 4 MG/ML 1ML VIAL ONE (09:42)
[2024-10-12] MEDS ORDERED: ondanSETRON 4MG INJ ONE (09:43)
[2024-10-12] MEDS ORDERED: GLYCOPYRROLATE 0.2 MG/ML 5 ML VIAL ONE (11:05)
[2024-10-12] MEDS ORDERED: ketOROlac 30MG VIAL (30MG/ML) ONE (11:05)
[2024-10-12] MEDS ORDERED: NEOSTIGMINE METHYLSULFATE 1MG/ML IV ONE (11:05)
--- NOTE | 2024-10-12 11:34 | OP ---
Operative Note: DATE OF PROCEDURE: 10/12/24 SURGEON: PAYTON PINO MD MEETING SPECIALIST: [FRAN Iniguez] ANESTHESIA: [General endotracheal anesthesia] ANESTHESIOLOGIST/RISK MANAGEMENT INTERN: [[facility] anesthesia team] PREOPERATIVE DIAGNOSIS: [Recurrent ventral incisional hernia] POSTOPERATIVE DIAGNOSIS: [Same] SYNOPSIS: [Recurrent ventral incisional hernia, incarcerated Exploratory laparoscopy converted to exploratory laparotomy with lysis of adhesions of for approximately 1 hour, explantation of mesh, enteroraphy, component separation, ventral hernia repair with mesh on a hernia the the measu red approximately 12 cm Complete closure of hernia defect All sponges and instruments were accounted for at the end the case Patient tolerated the procedure well, there no complications] PROCEDURE: [Exploratory laparoscopy converted to exploratory laparotomy with lysis of adhesions of for approximately 1 hour, explantation of mesh, enteroraphy, component separation, ventral hernia repair with mesh on a hernia the the measured approximately 12 cm] ESTIMATED BLOOD LOSS: [Less than 100 cc] INDICATIONS: [Recurrent ventral incisional hernia incarcerated causing patient discomfort] DESCRIPTION OF PROCEDURE: [On day of surgery patient presented to the hospital. Patient was brought back to operating room. Positioned in the supine position. Preoperative antibiotics were given. Bilateral SCDs were placed. Patient was intubated. Patient then was prepped and draped the usual fashion. The skin incision was made in the left upper quadrant. 5 mm trocars inserted under direct vision. Abdomen was insufflated to 15 mm Hg. No injury to omentum bowel noted however significant amount of adhesions of bowel and omentum was noted throughout the entire abdomen. The space was found in the right abdomen so a 5 mm incision was made in the right upper quadrant and a 5 mm trocars inserted under direct vision. Then a 2nd 5 mm trocars inserted in the right lateral abdomen. Then careful laparoscopic enterolysis was undertaken. This was done with a pair of endo Luis Antonio. There appeared to be piece of bowel that was intimately tethered to the old mesh. Careful dissection of this bowel revealed that the bowel appropriately was eroding into the mesh at this point in time decision to convert to open was made. Midline incision was made. Dissection down to the fascia was done electrocautery. Abdomen was entered sharply superior to the hernia defect and the old mesh. Further sharp enterolysis was conducted for approximately 1 hour.. The area with the bowel had eroded into the mesh was identified. The bowel was from mesh and indeed the bowel had eroded into the mesh. The area of the bowel that had eroded into the mesh was then fixed with silk suture in an imbricated fashion. Complete seal was achieved. That area of the mesh was then resected. Then complete further e nterolysis was conducted to free up all the bowel from the anterior abdominal wall. The old mesh was then explanted. The hernia defect itself measured approximately 12 cm from a craniocaudal direction. Then the fascia was mobilized laterally to a distance of approximately 5 cm to allow medialization of the fascia bilaterally. Then a piece of mesh measuring 15 x 25 cm was placed in the abdomen and sutured to the fascia with Ethibond suture. Then the midline fascia was reapproximated with 1. Looped PDS suture in a running fashion. The excess skin was then resected with a knife and a Bovie. Subcutaneous tissue was copiously irrigated. All irrigation was removed. Skin incision was staple closed. Appropriate dressings were placed. Patient has woken up, transferred to a stretcher, taken to recovery room to recovery. All sponges and instruments were accounted for at the end the case. Patient tolerated the procedure well, there was no complication.] PAYTON PINO MD Oct 12, 2024 11:34
[2024-10-12] MEDS: MEPERIDINE-PF 25 MG/ML SYG ONE (11:57)
[2024-10-12] MEDS ORDERED: LINA145C PO (12:01)
[2024-10-12] MEDS ORDERED: SIMV-43 PO (12:01)
[2024-10-12] MEDS ORDERED: PROG100C11 PO (12:01)
[2024-10-12] MEDS ORDERED: PHARMACY COMMUNICATION 1 EACH EACH MISC SCH (13:00)
[2024-10-12] MEDS: MEPERIDINE-PF 25 MG/ML SYG IVP PRN (13:53)
[2024-10-12] MEDS: traMADol HCL 50 MG TABLET PO PRN (15:38)
[2024-10-12] MEDS: methoCARBamol 500 MG TABLET PO SCH (15:38)
[2024-10-12] MEDS ORDERED: DEXTROSE 50%-WATER 50 ML DISP.SYRIN IV PRN (16:00)
[2024-10-12] MEDS ORDERED: PoTASSium chl 10% ELIXIR 20MEQ 20 MEQ/15 ML UDCUP PO PRN (16:00)
[2024-10-12] MEDS ORDERED: MAGNESIUM 2GM PREMIX 50ML 50 ML IV PRN (16:00)
[2024-10-12] MEDS ORDERED: GLUCAGON 1MG KIT 1 MG ML IM PRN (16:00)
[2024-10-12] MEDS ORDERED: PoTASSium chloRIDE 10MEQ/100ML 100 ML IV PRN (16:00)
[2024-10-12] MEDS ORDERED: PoTASSium chloRIDE 20MEQ ER 20 MEQ ERTAB PO PRN (16:00)
--- NOTE | 2024-10-12 16:03 | CONS ---
[facility] CONSULTATION NOTE Date of Service: Oct 12, 2024 Reason for Consultation: [ Medical management ] Requesting Physician: [ dr Ko ] HISTORY OF PRESENT ILLNESS: [ Patient is 59 years old female with a past medical history of hypertension, hyperlipidemia, CHF, neuropathy, who came to [facility] for elective incarcerated ventral hernia repair with Dr Ko 10/12/24.Exploratory laparoscopy converted to exploratory laparotomy with lysis of adhesions of for approximately 1 hour, explantation of mesh, enteroraphy, component separation, ventral hernia repair with mesh on a hernia the the measured approximately 12 cm. Most recent vital signs temperature 97.7 pulse 87 respirations 17 blood pressure 140/83 patient is on room air satting 93%. Sodium 142 potassium 3.6 CO2 31 BUN 15 creatinine 0.7 GFR 98. WBC 7.7 hemoglobin 13.3 hematocrit 39.8 platelets 246. Patient will be admitted under , and hospitalist will be managing overall patient's care. We will continue to monitor patient in the meantime a.m. labs. ] REVIEW OF SYSTEMS CONSTITUTIONAL: Denies fevers, chills, or night sweats. No unintentional weight loss reported. NEUROLOGICAL: Denies headache, amaurosis fugax, motor weakness, sensory deficit, vertigo/spinning sensation, gait abnormalities, or tremors. ENT: No hearing loss, otalgia, otorrhea, rhinitis, rhinorrhea, hoarseness, or sore throat. CARDIOVASCULAR: Denies any exertional angina, dyspnea on exertion, orthopnea, paroxysmal nocturnal dyspnea, palpitations, life-threatening arrhythmias, claudication. PULMONARY: Denies any shortness of breath, cough, phlegm/sputum, hemoptysis, pleuritic chest pain. SLEEP: Denies morning headaches, daytime somnolence or napping. Denies difficulty falling asleep, staying asleep, waking from sleep. Denies knowledge of snoring. GASTROINTESTINAL: Denies any type of dysphagia to either liquids or solids. Denies nausea, vomiting, pyrosis, early satiety, abdominal pain, diarrhea, constipation, or changes in stool consistency or caliber. Denies coffee-ground emesis, hematemesis, hematochezia, or melanotic stools. GENITOURINARY: Denies frequency, urgency, nocturia, hematuria or incontinence (Storage/Irritative symptoms.) Low urinary stream, straining to void, urinary intermittency or hesitancy, splitting of the voiding stream, terminal dribbling. ENDOCRINOLOGIC: Denies polyuria, polydipsia, polyphagia or heat/cold intolerances. HEMATOLOGIC: Denies thrombophilia/previous clots, or coagulopathy/bleeding disorders. ONCOLOGIC: Denies personal history of malignancy. DERMATOLOGIC: Denies rashes or pruritus. PSYCHIATRIC: Denies any suicidal or homicidal ideation. Denies hallucinations. PAST MEDICAL HISTORY: [hypertension, hyperlipidemia, CHF, neuropathy, atherosclerosis of aorta, GERD, CKD, obesity, previous bowel obstruction, peritonitis, sepsis, transaminitis, gastritis ] PAST SURGICAL HISTORY: [ Abdominal ventral wall hernia repair] PAST SOCIAL HISTORY: [ Patient denies alcohol use, cigarette smoking or any drug illicit ] FAMILY HISTORY: [ Father hypertension, stroke, Coronary Artery Disease, COPD, Alzheimer Mother hypertension, diabetes, Coronary Artery Disease, asthma] Coded Allergies: No Known Allergies (Unverified Allergy, 09/07/13) No Known Drug Allergies (Unverified Allergy, 10/06/12) PHYSICAL EXAM GENERAL APPEARANCE: The patient is awake, alert, and oriented, in no acute cardiopulmonary distress. NEUROLOGICAL: Cranial nerves II-XII grossly intact. Motor is 5/5 in bilateral upper and lower extremities proximal to distal. No sensory deficits. HEENT: Face is symmetric. Pupils are equal and reactive. Extraocular movements are intact. NECK: Supple. No JVD. No thyromegaly. No submental, submandibular, pre-/postauricular, occipital or supraclavicular lymphadenopathy. CHEST: Normal chest expansion. No Telemetry. LUNGS: Absence of any rales, rhonchi or any wheezing. CARDIOVASCULAR: Regular. S1 and S2 normal. No appreciable rubs, murmurs or gallops. ABDOMEN: Soft, nontender, and nondistended. There is no rebound, voluntary guarding, or rigidity. : Deferred. No Cooper. EXTREMITIES: Non-edematous and not cyanotic. No clubbing. Good capillary refill. SKIN: No skin breakdown. Vital Sign (Last 24 Hours) 10/12/24 12:55 Temp 97.7 Pulse 87 Resp 17 B/P (MAP) 140/83 Pulse Ox 93 O2 Delivery Room Air* O2 Flow Rate 0 FiO2 21 LABS: Laboratory: Test 10/12/24 08:48 Range/Units Prothrombin Time 10.2 9.6-11.6 SEC Prothromb Time International Ratio 0.94 0.85-1.15 Activated Partial Thromboplast Time 25.1 L 26.3-35.5 SEC DIAGNOSTICS / RADIOLOGY: [ ] ASSESSMENT: [ 10/12/24 Exploratory laparoscopy converted to exploratory laparotomy with lysis of adhesions of for approximately 1 hour, explantation of mesh, enteroraphy, component separation, ventral hernia repair with mesh on a hernia the the measured approximately [address] Shi Hypertension POA Uncontrolled diabetes mellitus type 2 with hypoglycemia POA Morbid obesity POA Gastritis Previous abdominal hernia repair History of sepsis History of peritonitis History of transaminitis] PLAN: [Admit to: Medical-surgical Antibiotics: None Tests: None NEURO: Minimize central acting medications as possible. Fall Precautions. Well lighted room through the day and minimize interruptions through the night to prevent acute delirium. PULMONARY: Supplemental 02 as needed BiPAP as necessary, for respiratory distress Titrate Fio2 to keep Spo2 > or = 90% DuoNebs and CPT as needed IS hourly while awake for pulmonary hygiene Out of bed to chair as tolerated VAP Bundle Maintain aspiration precautions at all times CARDIOVASCULAR: Follow hemodynamics. Vital signs per facility protocol GI & NUTRITION: Continue nutritional support Aspirations precautions Prokinetic agents and laxatives as needed KIDNEYS & ELECTROLYTES: Strict monitoring of intake and output Daily weights Avoid nephrotoxic agents Monitor electrolytes and replace as needed Goal urine output of 30mL/hr or 0.5mL/kg/hr Medications to be dosed according to renal function. Avoid contrast if possible ENDOCRINE: Maintain blood glucose between 100-180 at all times. Insulin sliding scale for blood glucose management Hypoglycemia and hyperglycemia protocol in place INFECTIOUS DISEASE: Trend temperature, WBC and procalcitonin level Follow cultures, deescalate antibiotics as soon as possible. Panculture if new onset fever HEMATOLOGY & COAGULATION: Monitor H&H. Keep Hgb > 7 Transfuse 1 unit of PRBC for Hgb < 7 Transfuse 1 pack of platelets of platelets < 20, 000 Watch for any signs and symptoms of bleeding SKIN: Pressure ulcer prevention per facility protocol Specialty mattress as needed Treatment plan discussed with patient and family at the bedside Medications to be reconciled once obtained by patient and/or family and available to be reconciled in computer p.r.n. medication for pain nausea and vomiting Questions were answered We will continue to monitor the patient closely Social Work Administrator for disposition Rehab: PT/OT GI: PPI DVT: SCD's Code Status: Full Resuscitation Disposition: TBD Prognosis: Guarded ] ATTESTATION BY PHYSICIAN I have seen and examined the patient. I reviewed the documentation, medical decision making, and treatment plan as noted by the mid-level provider above. I agree with the findings and plan of care. SCOTT MIRELES MD, [facility] Oct 12, 2024 16:03
[2024-10-12] MEDS: INSULIN humuLIN R 100 UNIT/ML 3ML SQ SCH (16:30)
[2024-10-12] MEDS ORDERED: Linaclotide (Linzess) 1 CAP PO PRN (17:00)
[2024-10-12] MEDS: ketOROlac 30MG VIAL (30MG/ML) IVP SCH (17:02)
--- NOTE | 2024-10-12 20:10 | NUR ---
After bran removal, assisted patient to ambulate around station. Patient ambulated two lengths of hallway. Once in room, assisted pt. to sit in chair. Patient tolerated this activity well. Call light is within reach, oral meds have been given, patient is aware to call for assistance. Addendum: 10/12/24 at 4077 by SHAVON CLEMENTS RN RN Amended: Links added.
[2024-10-12] MEDS: doCUSate SODIUM 100 MG CAP PO ONE (20:39)
[2024-10-12] MEDS: simVASTatin 20 MG TABLET PO SCH (20:39)
[2024-10-12] MEDS: PROGESTERONE MICRONIZED PO SCH (20:46)
--- NOTE | 2024-10-12 22:20 | NUR ---
Assisted patient to restroom, she was able to void. Patient is now in bed, SCD back on. Patient has requested to rest, does not want midnight vitals if possible, Vitals taken at this time, call light within reach. Patient reminded that the scheduled medications have been given, however we do have IV PRN pain meds if needed. She has verbalized understanding of these. Addendum: 10/12/24 at 2252 by SHAVON CLEMENTS RN RN Amended: Links added.
[2024-10-13] VITALS (7 sets, daily range): BP systolic 115–155; BP diastolic 69–85; PULSE 71–89; RESP 16–20; TEMP 97.6–98.7; O2SAT 95–99
--- NOTE | 2024-10-13 04:30 | NUR ---
Patient was able to ambulate the entire unit, tolerated this well. She is only rating her pain a 4, scheduled meds given. She was able to void without difficulty, she has brushed teeth and changed gowns at this time. Bowel sounds are hypoactive but she was able to pass gas earlier. Addendum: 10/13/24 at 0539 by SHAVON CLEMENTS RN RN Amended: Links added.
[2024-10-13] MEDS: PANTOPrazole 40 MG TAB DR PO PRN (04:59)
[2024-10-13 06:43] LABS: BASOPHILS # (AUTO) 0.01 K/uL (0.00-0.20); BASOPHILS % (AUTO) 0.1 % (0.0-5.0); EOSINOPHILS # (AUTO) 0.01 K/uL (0.00-0.70); EOSINOPHILS % (AUTO) 0.1 % (0.0-8.0); HEMATOCRIT 32.1 % (36-48); IMMATURE GRANULOCYTE ABSOLUTE 0.05 K/uL (0-1); LYMPHOCYTES # (AUTO) 1.3 K/uL (1.0-4.8); LYMPHOCYTES % (AUTO) 10.6 % (21.0-51.0); MEAN CORPUSCULAR HEMOGLOBIN 30.3 pg (27.0-33.0); MEAN CORPUSCULAR HGB CONC 34.3 g/dL (32.0-36.0); MEAN CORPUSCULAR VOLUME 88.4 fL (79-99); MONOCYTES # (AUTO) 1.5 K/uL (0.1-1.0); MONOCYTES % (AUTO) 12.8 % (3.0-13.0); PLATELET COUNT (AUTO) 216 K/uL (130-400); RED BLOOD CELL COUNT(AUTO) 3.63 MIL/uL (4.00-5.50); RED CELL DISTRIBUTION WIDTH 12.8 % (11.0-15.5); WHITE BLOOD COUNT (AUTO) 11.8 K/uL (4.8-10.8)
[2024-10-13 06:48] LABS: HEMOGLOBIN A1C 5.4 % (4.0-6.0)
[2024-10-13 06:54] LABS: AMMONIA < 10 umol/L (11-32)
[2024-10-13 06:59] LABS: ALANINE AMINOTRANSFERASE 30 U/L (12-78); ALBUMIN 3.1 g/dL (3.5-5.0); ASPARTATE AMINOTRANSFERASE 31 U/L (10-37); BILIRUBIN,DIRECT 0.2 mg/dL (0.0-0.3); CARBON DIOXIDE 33 mmol/L (21-32); CHLORIDE 105 mmol/L (101-111); CREATINE KINASE, TOTAL 192 U/L (21-232); CREATININE 0.6 mg/dL (0.5-1.0); GLOMERULAR FILTR. RATE CALC 102 mL/min (>90); GLUCOSE,RANDOM 111 mg/dL (70-105); POTASSIUM 3.6 mmol/L (3.5-5.1); SODIUM SERUM 141 mmol/L (136-145); TOTAL PROTEIN, SERUM 6.5 g/dL (6.0-8.3); UREA NITROGEN, BLOOD 17 mg/dL (7-18)
[2024-10-13] MEDS: LoSARTan 100 MG TABLET PO SCH (09:57)
[2024-10-13] MEDS: hydroCHLOROthiazide 25 MG TABLET PO SCH (09:57)
[2024-10-13] MEDS: PoTASSium chl 10% ELIXIR 20MEQ 20 MEQ/15 ML UDCUP PO ONE (09:58)
--- NOTE | 2024-10-13 10:15 | NUR ---
ambulating in the hallway in steady gait, accompanied by spouse Addendum: 10/13/24 at 1245 by YANELIS COTE RN Amended: Links added.
--- NOTE | 2024-10-13 10:51 | PN ---
[facility] PROGRESS NOTE Date of Service: Oct 13, 2024 Time of Service: 10:[address] Salas SUBJECTIVE: [ 10/12 Patient is 59 years old female with a past medical history of hypertension, hyperlipidemia, CHF, neuropathy, who came to [facility] for elective incarcerated ventral hernia repair with Dr Ko 10/12/24.Exploratory laparoscopy converted to exploratory laparotomy with lysis of adhesions of for approximately 1 hour, explantation of mesh, enteroraphy, component separation, ventral hernia repair with mesh on a hernia the the measured approximately 12 cm. Most recent vital signs temperature 97.7 pulse 87 respirations 17 blood pressure 140/83 patient is on room air satting 93%. Sodium 142 potassium 3.6 CO2 31 BUN 15 creatinine 0.7 GFR 98. WBC 7.7 hemoglobin 13.3 hematocrit 39.8 platelets 246. Patient will be admitted under , and hospitalist will be managing overall patient's care. We will continue to monitor patient in the meantime a.m. labs. ] 10/13 patient was seen by nurse practitioner and physician during rounding in room 114 comfortably lying in the bed. Family members at the bedside. Patient is on a clear liquid diet and tolerating food well. We are waiting for at this moment to advanced patient's diet and further recommendations. WBC today is 11.8 which is expected after surgery. Patient's potassium is 3.6 patient received 40 mEq of potassium to replace electrolyte. Patient was also informed about the A1c of being 5.4. Patient denies any shortness of breath, chest pain, nausea, vomiting or any other discomfort. Patient also stated that she has been passing gases. We will continue to monitor patient. A.m. labs ] REVIEW OF SYSTEMS CONSTITUTIONAL: Denies fevers, chills, or night sweats. No unintentional weight loss reported. NEUROLOGICAL: Denies headache, amaurosis fugax, motor weakness, sensory deficit, vertigo/spinning sensation, gait abnormalities, or tremors. ENT: No hearing loss, otalgia, otorrhea, rhinitis, rhinorrhea, hoarseness, or sore throat. CARDIOVASCULAR: Denies any exertional angina, dyspnea on exertion, orthopnea, paroxysmal nocturnal dyspnea, palpitations, life-threatening arrhythmias, claudication. PULMONARY: Denies any shortness of breath, cough, phlegm/sputum, hemoptysis, pleuritic chest pain. SLEEP: Denies morning headaches, daytime somnolence or napping. Denies d ifficulty falling asleep, staying asleep, waking from sleep. Denies knowledge of snoring. GASTROINTESTINAL: Denies any type of dysphagia to either liquids or solids. Denies nausea, vomiting, pyrosis, early satiety, abdominal pain, diarrhea, constipation, or changes in stool consistency or caliber. Denies coffee-ground emesis, hematemesis, hematochezia, or melanotic stools. GENITOURINARY: Denies frequency, urgency, nocturia, hematuria or incontinence (Storage/Irritative symptoms.) Low urinary stream, straining to void, urinary intermittency or hesitancy, splitting of the voiding stream, terminal dribbling. ENDOCRINOLOGIC: Denies polyuria, polydipsia, polyphagia or heat/cold intolerances. HEMATOLOGIC: Denies thrombophilia/previous clots, or coagulopathy/bleeding disorders. ONCOLOGIC: Denies personal history of malignancy. DERMATOLOGIC: Denies rashes or pruritus. PSYCHIATRIC: Denies any suicidal or homicidal ideation. Denies hallucinations. PHYSICAL EXAM GENERAL APPEARANCE: The patient is awake, alert, and oriented, in no acute cardiopulmonary distress. NEUROLOGICAL: Cranial nerves II-XII grossly intact. Motor is 5/5 in bilateral upper and lower extremities proximal to distal. No sensory deficits. HEENT: Face is symmetric. Pupils are equal and reactive. Extraocular movements are intact. NECK: Supple. No JVD. No thyromegaly. No submental, submandibular, pre- /postauricular, occipital or supraclavicular lymphadenopathy. CHEST: Normal chest expansion. No Telemetry. LUNGS: Absence of any rales, rhonchi or any wheezing. CARDIOVASCULAR: Regular. S1 and S2 normal. No appreciable rubs, murmurs or gallops. ABDOMEN: Soft, nontender, and nondistended. There is no rebound, voluntary guarding, or rigidity. : Deferred. No Cooper. EXTREMITIES: Non-edematous and not cyanotic. No clubbing. Good capillary refill. SKIN: No skin breakdown. Vital Signs (last 8hr) Date Time Temp Pulse Resp B/P (MAP) Pulse Ox O2 Delivery O2 Flow Rate FiO2 10/13/24 07:25 99 Room Air* 0 21 10/13/24 07:25 97.7 71 20 134/74 95 Room Air 10/13/24 03:33 97.7 86 19 129/76 99 Room Air LABS: Laboratory: Test 10/13/24 06:26 10/12/24 19:55 10/12/24 08:48 Range/Units White Blood Count 11.8 H 4.8-10.8 K/uL Red Blood Count 3.63 L 4.00-5.50 MIL/uL Hemoglobin 11.0 L 12.0-16.0 g/dL Hematocrit 32.1 L 36-48 % Mean Corpuscular Volume 88.4 79-99 fL Mean Corpuscular Hemoglobin 30.3 27.0-33.0 pg Mean Corpuscular Hemoglobin Concent 34.3 32.0-36.0 g/dL Red Cell Distribution Width 12.8 11.0-15.5 % Platelet Count 216 130-400 K/uL Mean Platelet Volume 9.3 7.5-10.5 fL Immature Granulocyte % (Auto) 0.4 0-1 % Neutrophils (%) (Auto) 76.0 40.0-77.0 % Lymphocytes (%) (Auto) 10.6 L 21.0-51.0 % Monocytes (%) (Auto) 12.8 3.0-13.0 % Eosinophils (%) (Auto) 0.1 0.0-8.0 % Basophils (%) (Auto) 0.1 0.0-5.0 % Neutrophils # (Auto) 9.0 H 1.8-7.7 K/uL Lymphocytes # (Auto) 1.3 1.0-4.8 K/uL Monocytes # (Auto) 1.5 H 0.1-1.0 K/uL Eosinophils # (Auto) 0.01 0.00-0.70 K/uL Basophils # (Auto) 0.01 0.00-0.20 K/uL Absolute Immature Granulocyte (auto 0.05 0-1 K/uL Nucleated Red Blood Cells 0.0 0.0-0.19 % Sodium Level 141 136-145 mmol/L Potassium Level 3.6 3.5-5.1 mmol/L Chloride Level 105 101-111 mmol/L Carbon Dioxide Level 33 H 21-32 mmol/L Blood Urea Nitrogen 17 7-18 mg/dL Creatinine 0.6 0.5-1.0 mg/dL Glomerular Filtration Rate Calc 102 >90 mL/min Random Glucose 111 H 70-105 mg/dL Hemoglobin A1c 5.4 4.0-6.0 % Estimated Average Glucose (eAG) 108 70-126 mg/dL Lactic Acid Level 1.4 0.8-2.5 mmol/L Total Calcium 8.7 8.5-10.1 mg/dL Magnesium Level 2.00 1.80-2.40 mg/dL Total Bilirubin 1.0 0.2-1.0 mg/dL Direct Bilirubin 0.2 0.0-0.3 mg/dL Aspartate Amino Transf (AST/SGOT) 31 10-37 U/L Alanine Aminotransferase (ALT/SGPT) 30 12-78 U/L Alkaline Phosphatase 72 50-136 U/L Ammonia < 10 L 11-32 umol/L Total Creatine Kinase 192 # 21-232 U/L B-Type Natriuretic Peptide 73 0-100 pg/mL Total Protein 6.5 6.0-8.3 g/dL Albumin 3.1 L 3.5-5.0 g/dL Procalcitonin < 0.05 L 0.05-0.5 ng/mL Whole Blood Glucose 152 H 70-110 MG/DL Prothrombin Time 10.2 9.6-11.6 SEC Prothromb Time International Ratio 0.94 0.85-1.15 Activated Partial Thromboplast Time 25.1 L 26.3-35.5 SEC Current Medications Medications (Trade) Dose Ordered Sig/Юлия Route PRN Reason Start Time Stop Time Status Last Admin Dose Admin Dextrose (D50w) 50 ml AD PRN IV HYPOGLYCEMIA PROTOCOL 10/12/24 16:00 11/11/24 15:59 Glucagon (Glucagon 1mg Kit) 1 mg AD PRN IM HYPOGLYCEMIA PROTOCOL 10/12/24 16:00 11/11/24 15:59 Home Med (Home Medication) Linaclotide (Linzess) 1 CAP DAILY PRN PO CONSTIPATION 10/12/24 17:00 11/11/24 16:59 Home Med (Home Medication) Progesterone,Micronized (Progesterone) 1 CAP HS PO 10/12/24 21:00 11/11/24 20:59 10/12/24 20:46 1 EACH Hydrochlorothiazide (hydroCHLOROthiazide 25MG) 25 mg DAILY PO 10/13/24 09:00 11/12/24 08:59 10/13/24 09:57 25 MG Insulin Human Regular (humuLIN R 100 UNIT/ML 3ML) INSULIN SLIDING SCAL... ACHS SQ 10/12/24 16:30 11/11/24 16:29 Ketorolac Tromethamine (toRADol) 30 mg Q6H IVP 10/12/24 17:00 10/17/24 16:59 10/13/24 04:24 30 MG Losartan Potassium (CozAAR 100MG TAB) 100 mg DAILY PO 10/13/24 09:00 11/12/24 08:59 10/13/24 09:57 100 MG Magnesium Sulfate 50 ml @ 0 mls/hr PROTOCOL PRN IV other 10/12/24 16:00 11/11/24 15:59 Meperidine HCl (Demerol-Pf) 25 mg Q3H PRN IVP SEVERE PAIN (7-10) 10/12/24 13:30 10/19/24 13:29 10/12/24 13:53 25 MG Methocarbamol (methoCARBamol) 500 mg Q8H6 PO 10/12/24 14:00 11/11/24 13:59 10/13/24 04:24 500 MG Pantoprazole Sodium (PROTonix 40MG TAB) 40 mg DAILY PRN PO gerd 10/12/24 17:00 11/11/24 16:59 10/13/24 04:59 40 MG Pharmacy Profile Note (Lace Assessment) 1 each AD MISC 10/12/24 13:00 10/19/24 12:59 Potassium Chloride 100 ml @ 100 mls/hr AD PRN IV POTASSIUM PROTOCOL 10/12/24 16:00 11/11/24 15:59 Potassium Chloride (K-Dur/Klor-Con 20meq) 10 meq AD PRN PO POTASSIUM PROTOCOL 10/12/24 16:00 11/11/24 15:59 Potassium Chloride (KCl 10% Elixir 20meq/15ml) 10 meq AD PRN PO POTASSIUM PROTOCOL 10/12/24 16:00 11/11/24 15:59 Simvastatin (zoCOR) 20 mg HS PO 10/12/24 21:00 11/11/24 20:59 10/12/24 20:39 20 MG Tramadol HCl (UltRAM) 50 mg Q6H PRN PO MODERATE PAIN (4-6) 10/12/24 13:30 10/17/24 13:29 10/13/24 03:22 50 MG DIAGNOSTICS / RADIOLOGY: [ ] ASSESSMENT: [ 10/12/24 Exploratory laparoscopy converted to exploratory laparotomy with lysis of adhesions of for approximately 1 hour, explantation of mesh, enteroraphy, component separation, ventral hernia repair with mesh on a hernia the the measured approximately [address] Shi Hypertension POA Uncontrolled diabetes mellitus type 2 with hypoglycemia POA Morbid obesity POA Gastritis Previous abdominal hernia repair History of sepsis History of peritonitis History of transaminitis] PLAN: [Admit to: Medical-surgical Antibiotics: None Tests: None NEURO: Minimize central acting medications as possible. Fall Precautions. Well lighted room through the day and minimize interruptions through the night to prevent acute delirium. PULMONARY: Supplemental 02 as needed BiPAP as necessary, for respiratory distress Titrate Fio2 to keep Spo2 > or = 90% DuoNebs and CPT as needed IS hourly while awake for pulmonary hygiene Out of bed to chair as tolerated VAP Bundle Maintain aspiration precautions at all times CARDIOVASCULAR: Follow hemodynamics. Vital signs per facility protocol GI & NUTRITION: Continue nutritional support Aspirations precautions Prokinetic agents and laxatives as needed KIDNEYS & ELECTROLYTES: Strict monitoring of intake and output Daily weights Avoid nephrotoxic agents Monitor electrolytes and replace as needed Goal urine output of 30mL/hr or 0.5mL/kg/hr Medications to be dosed according to renal function. Avoid contrast if possible ENDOCRINE: Maintain blood glucose between 100-180 at all times. Insulin sliding scale for blood glucose management Hypoglycemia and hyperglycemia protocol in place INFECTIOUS DISEASE: Trend temperature, WBC and procalcitonin level Follow cultures, deescalate antibiotics as soon as possible. Panculture if new onset fever HEMATOLOGY & COAGULATION: Monitor H&H. Keep Hgb > 7 Transfuse 1 unit of PRBC for Hgb < 7 Transfuse 1 pack of platelets of platelets < 20, 000 Watch for any signs and symptoms of bleeding SKIN: Pressure ulcer prevention per facility protocol Specialty mattress as needed Treatment plan discussed with patient and family at the bedside Medications to be reconciled once obtained by patient and/or family and available to be reconciled in computer p.r.n. medication for pain nausea and vomiting Questions were answered We will continue to monitor the patient closely Stores Laborer for disposition Rehab: PT/OT GI: PPI DVT: SCD's Code Status: Full Resuscitation Disposition: TBD Prognosis: Guarded ] ATTESTATION BY PHYSICIAN I have seen and examined the patient. I reviewed the documentation, medical decision making, and treatment plan as noted by the mid-level provider above. I agree with the findings and plan of care. SCOTT SALAS MD, [employer] REPRESENTATIVE Oct 13, 2024 10:51
--- NOTE | 2024-10-13 16:45 | NUR ---
rounds, pt seen by , explained procedure done, informed on plan of care,clear liquids for 1 week, for discharge tomorrow. All questions answered by MD. Addendum: 10/13/24 at 1708 by YANELIS COTE RN Amended: Links added.
--- NOTE | 2024-10-13 19:14 | PN ---
PROGRESS NOTE Date of Service: Oct 13, 2024 Time of Service: 19:12 SUBJECTIVE: [Patient doing well status post ventral hernia repair with component separation and implantation of mesh after extending all mesh. Patient is tolerating clears. Ambulating. Pain is controlled. ] REVIEW OF SYSTEMS PHYSICAL EXAM Awake, alert, oriented x3 Unlabored Regular rate and rhythm Abdomen soft, a put him on tenderness., nondistended, incisions clean, dry, intact Vital Signs (last 8hr) Date Time Temp Pulse Resp B/P (MAP) Pulse Ox O2 Delivery O2 Flow Rate FiO2 10/13/24 16:00 97.9 89 20 155/85 96 Room Air 10/13/24 12:00 97.5 77 20 145/83 Room Air LABS: Laboratory: Test 10/13/24 06:26 10/12/24 19:55 10/12/24 08:48 Range/Units White Blood Count 11.8 H 4.8-10.8 K/uL Red Blood Count 3.63 L 4.00-5.50 MIL/uL Hemoglobin 11.0 L 12.0-16.0 g/dL Hematocrit 32.1 L 36-48 % Mean Corpuscular Volume 88.4 79-99 fL Mean Corpuscular Hemoglobin 30.3 27.0-33.0 pg Mean Corpuscular Hemoglobin Concent 34.3 32.0-36.0 g/dL Red Cell Distribution Width 12.8 11.0-15.5 % Platelet Count 216 130-400 K/uL Mean Platelet Volume 9.3 7.5-10.5 fL Immature Granulocyte % (Auto) 0.4 0-1 % Neutrophils (%) (Auto) 76.0 40.0-77.0 % Lymphocytes (%) (Auto) 10.6 L 21.0-51.0 % Monocytes (%) (Auto) 12.8 3.0-13.0 % Eosinophils (%) (Auto) 0.1 0.0-8.0 % Basophils (%) (Auto) 0.1 0.0-5.0 % Neutrophils # (Auto) 9.0 H 1.8-7.7 K/uL Lymphocytes # (Auto) 1.3 1.0-4.8 K/uL Monocytes # (Auto) 1.5 H 0.1-1.0 K/uL Eosinophils # (Auto) 0.01 0.00-0.70 K/uL Basophils # (Auto) 0.01 0.00-0.20 K/uL Absolute Immature Granulocyte (auto 0.05 0-1 K/uL Nucleated Red Blood Cells 0.0 0.0-0.19 % Sodium Level 141 136-145 mmol/L Potassium Level 3.6 3.5-5.1 mmol/L Chloride Level 105 101-111 mmol/L Carbon Dioxide Level 33 H 21-32 mmol/L Blood Urea Nitrogen 17 7-18 mg/dL Creatinine 0.6 0.5-1.0 mg/dL Glomerular Filtration Rate Calc 102 >90 mL/min Random Glucose 111 H 70-105 mg/dL Hemoglobin A1c 5.4 4.0-6.0 % Estimated Average Glucose (eAG) 108 70-126 mg/dL Lactic Acid Level 1.4 0.8-2.5 mmol/L Total Calcium 8.7 8.5-10.1 mg/dL Magnesium Level 2.00 1.80-2.40 mg/dL Total Bilirubin 1.0 0.2-1.0 mg/dL Direct Bilirubin 0.2 0.0-0.3 mg/dL Aspartate Amino Transf (AST/SGOT) 31 10-37 U/L Alanine Aminotransferase (ALT/SGPT) 30 12-78 U/L Alkaline Phosphatase 72 50-136 U/L Ammonia < 10 L 11-32 umol/L Total Creatine Kinase 192 # 21-232 U/L B-Type Natriuretic Peptide 73 0-100 pg/mL Total Protein 6.5 6.0-8.3 g/dL Albumin 3.1 L 3.5-5.0 g/dL Procalcitonin < 0.05 L 0.05-0.5 ng/mL Whole Blood Glucose 152 H 70-110 MG/DL Prothrombin Time 10.2 9.6-11.6 SEC Prothromb Time International Ratio 0.94 0.85-1.15 Activated Partial Thromboplast Time 25.1 L 26.3-35.5 SEC DIAGNOSTICS / RADIOLOGY: [ ] ASSESSMENT: [Patient doing well status post ventral hernia repair. ] PLAN: [ Continue clear liquid diet for now. Patient to go home on a clear liquid diet. If patient's pain is controlled with oral pain meds we will plan on discharging patient home tomorrow. All patient questions have been answered. Ambulate. Pulmonary toilet. ] PAYTON PINO MD Oct 13, 2024 19:14
--- NOTE | 2024-10-13 19:15 | NUR ---
Patient ambulating in the hallway with steady gait accompanied by spouse.
[2024-10-13] MEDS: ketOROlac 30MG VIAL (30MG/ML) IVP SCH (20:08)
[2024-10-14 04:06] VITALS: BP 117/69; PULSE 83; RESP 16; TEMP 97.9
[2024-10-14 07:15] VITALS: BP 135/78; PULSE 91; RESP 18; TEMP 98.2; O2SAT 95
[2024-10-14 07:21] LABS: BASOPHILS # (AUTO) 0.02 K/uL (0.00-0.20); BASOPHILS % (AUTO) 0.2 % (0.0-5.0); EOSINOPHILS # (AUTO) 0.14 K/uL (0.00-0.70); EOSINOPHILS % (AUTO) 1.6 % (0.0-8.0); HEMATOCRIT 34.9 % (36-48); IMMATURE GRANULOCYTE ABSOLUTE 0.02 K/uL (0-1); LYMPHOCYTES # (AUTO) 2.4 K/uL (1.0-4.8); LYMPHOCYTES % (AUTO) 27.9 % (21.0-51.0); MEAN CORPUSCULAR HEMOGLOBIN 30.6 pg (27.0-33.0); MEAN CORPUSCULAR VOLUME 92.8 fL (79-99); MONOCYTES # (AUTO) 0.8 K/uL (0.1-1.0); NEUTROPHILS # (AUTO) 5.3 K/uL (1.8-7.7); NEUTROPHILS % (AUTO) 61.1 % (40.0-77.0); PLATELET COUNT (AUTO) 194 K/uL (130-400); RED BLOOD CELL COUNT(AUTO) 3.76 MIL/uL (4.00-5.50); RED CELL DISTRIBUTION WIDTH 12.9 % (11.0-15.5); WHITE BLOOD COUNT (AUTO) 8.6 K/uL (4.8-10.8)
--- NOTE | 2024-10-14 07:30 | NUR ---
PATIENT AMBULATING IN HALLWAY INDEPENDENTLY WITH STEADY GAIT.
[2024-10-14 07:37] LABS: ALBUMIN 3.6 g/dL (3.5-5.0); BILIRUBIN,TOTAL 0.9 mg/dL (0.2-1.0); CREATININE 0.7 mg/dL (0.5-1.0); POTASSIUM 3.5 mmol/L (3.5-5.1)
--- NOTE | 2024-10-14 10:25 | NUR ---
PATIENT SITTING UP IN CHAIR COMFORTABLY. FAMILY VISITING. Elpidio KAY NP ROUNDING FOR DR DILLON, ASSESSED PATIENT, DISCUSSED POC AND DISCHARGE WITH PATIENT. SEE NEW ORDERS ALSO. Addendum: 10/14/24 at 1214 by SULLY GARNER RN RN Amended: Links added.
[2024-10-14] MEDS: PoTASSium chloRIDE 20MEQ ER 20 MEQ ERTAB PO ONE (10:40)
--- NOTE | 2024-10-14 11:41 | NUR ---
CALLED AND SPOKE WITH DR PINO (SURGEON) TO F/U WHEN HE WILL BE ROUNDING. STATES THAT HE ALREADY ROUNDED AND SPOKE WITH PATIENT. STATES PATIENT CAN BE DISCHARGED HOME FROM HIS STANDPOINT. STATES HOSPITALIST NEEDS TO PLACE DISCHARGE ORDER. STATES HE IS GOING TO SEND PRESCRIPTION TO PATIENT'S PHARMACY SOON HE IS DONE WITH HIS ROUNDING HERE. Addendum: 10/14/24 at 1219 by SULLY GARNER RN RN Amended: Links added.
--- NOTE | 2024-10-14 11:45 | NUR ---
SPOKE WITH PATIENT TO ASK WHEN DR PINO WAS IN TO SEE HER FOR MD STATES HE ALREADY SAW HER EARLY THIS MORNING. PATIENT STATES HE CAME IN AND SAW HER APPROXIMATELY 15 MINUTES AGO AND DISCUSSED DISCHARGE INSTRUCTIONS WITH HER AND THAT HE WILL SEND PRESCRIPTION TO HER PHARMACY. PATIENT STATES HER PHARMACY IS [facility] [place]. INFORMED PATIENT WILL BE CONTACTING HOSPITALIST'S DIRECTOR REPORT THAT SAW HER THIS MORNING TO NOTIFY OF DR PINO'S VISIT AND FOR DISCHARGE ORDER. PATIENT VERBALIZED UNDERSTANDING. IN TO ALSO PERFORM GLUCOMETER CHECK; HOWEVER, PATIENT REFUSED, STATES HAS NOT BEEN TOLD SHE IS A DIABETIC.
--- NOTE | 2024-10-14 11:51 | NUR ---
SPOKE WITH Elpidio KAY NP FOR DR DILLON (HOSPITALIST), NOTIFIED OF THE ABOVE CALL WITH DR PINO. STATES SHE WILL PLACE DISCHARGE ORDERS. SEE NEW ORDERS
[2024-10-14 11:55] VITALS: BP 127/85; PULSE 100; RESP 18; TEMP 98.5
[2024-10-14] MEDS ORDERED: DOCU-116 PO (11:56)
[2024-10-14] MEDS ORDERED: GABA-529 PO (11:56)
[2024-10-14] MEDS ORDERED: METH-662 PO (11:56)
[2024-10-14] MEDS ORDERED: TRAM100C3 PO (11:56)
--- NOTE | 2024-10-14 11:58 | PN ---
PROGRESS NOTE Date of Service: Oct 14, 2024 Time of Service: 11:57 SUBJECTIVE: [Patient doing well status post ventral hernia repair with component separation and implantation of mesh after extending all mesh. Patient is tolerating clears. Ambulating. Pain is controlled. ] REVIEW OF SYSTEMS PHYSICAL EXAM Awake, alert, oriented x3 Unlabored Regular rate and rhythm Abdomen soft, a put him on tenderness., nondistended, incisions clean, dry, intact Vital Signs (last 8hr) Date Time Temp Pulse Resp B/P (MAP) Pulse Ox O2 Delivery O2 Flow Rate FiO2 10/14/24 07:15 95 Room Air* 0 21 10/14/24 07:15 98.2 91 18 135/78 95 Room Air 10/14/24 04:06 97.9 83 16 117/69 97 Room Air LABS: Laboratory: Test 10/14/24 07:13 10/13/24 06:26 10/12/24 19:55 Range/Units White Blood Count 8.6 4.8-10.8 K/uL Red Blood Count 3.76 L 4.00-5.50 MIL/uL Hemoglobin 11.5 L 12.0-16.0 g/dL Hematocrit 34.9 L 36-48 % Mean Corpuscular Volume 92.8 79-99 fL Mean Corpuscular Hemoglobin 30.6 27.0-33.0 pg Mean Corpuscular Hemoglobin Concent 33.0 32.0-36.0 g/dL Red Cell Distribution Width 12.9 11.0-15.5 % Platelet Count 194 130-400 K/uL Mean Platelet Volume 8.9 7.5-10.5 fL Immature Granulocyte % (Auto) 0.2 0-1 % Neutrophils (%) (Auto) 61.1 40.0-77.0 % Lymphocytes (%) (Auto) 27.9 21.0-51.0 % Monocytes (%) (Auto) 9.0 3.0-13.0 % Eosinophils (%) (Auto) 1.6 0.0-8.0 % Basophils (%) (Auto) 0.2 0.0-5.0 % Neutrophils # (Auto) 5.3 1.8-7.7 K/uL Lymphocytes # (Auto) 2.4 1.0-4.8 K/uL Monocytes # (Auto) 0.8 0.1-1.0 K/uL Eosinophils # (Auto) 0.14 0.00-0.70 K/uL Basophils # (Auto) 0.02 0.00-0.20 K/uL Absolute Immature Granulocyte (auto 0.02 0-1 K/uL Nucleated Red Blood Cells 0.0 0.0-0.19 % Sodium Level 141 136-145 mmol/L Potassium Level 3.5 3.5-5.1 mmol/L Chloride Level 104 101-111 mmol/L Carbon Dioxide Level 29 21-32 mmol/L Blood Urea Nitrogen 12 7-18 mg/dL Creatinine 0.7 0.5-1.0 mg/dL Glomerular Filtration Rate Calc 98 >90 mL/min Random Glucose 95 70-105 mg/dL Total Calcium 9.0 8.5-10.1 mg/dL Magnesium Level 2.00 1.80-2.40 mg/dL Total Bilirubin 0.9 0.2-1.0 mg/dL Aspartate Amino Transf (AST/SGOT) 32 10-37 U/L Alanine Aminotransferase (ALT/SGPT) 28 12-78 U/L Alkaline Phosphatase 80 50-136 U/L Total Protein 7.0 6.0-8.3 g/dL Albumin 3.6 3.5-5.0 g/dL Hemoglobin A1c 5.4 4.0-6.0 % Estimated Average Glucose (eAG) 108 70-126 mg/dL Lactic Acid Level 1.4 0.8-2.5 mmol/L Direct Bilirubin 0.2 0.0-0.3 mg/dL Ammonia < 10 L 11-32 umol/L Total Creatine Kinase 192 # 21-232 U/L B-Type Natriuretic Peptide 73 0-100 pg/mL Procalcitonin < 0.05 L 0.05-0.5 ng/mL Whole Blood Glucose 152 H 70-110 MG/DL DIAGNOSTICS / RADIOLOGY: [ ] ASSESSMENT: [Patient doing well status post ventral hernia repair. ] PLAN: [ Patient be discharged home on clear liquids. Patient's stay on clear liquids for about a week. Patient to follow up with me in 7-10 days.. ] PAYTON PINO MD Oct 14, 2024 11:58
[2024-10-14] MEDS ORDERED: METH-811 PO (12:30)
--- NOTE | 2024-10-14 12:33 | DS ---
Discharge Summary Hospital Course Summary: DATE OF ADMISSION:[10/12/2024] DATE OF DISCHARGE:[10/14/2024] DISPOSITION:[] Home CONDITION:[Medically stable] CONSULTANTS:[Surgeon] FOLLOW UP APPOINTMENTS:[] PCP 2 to 3 days. Surgeon within one week. PROCEDURES:[Exploratory lap with lysis of adhesions, explantation of mesh ventral hernia repair ] IMAGING: report attached to summary MICROBIOLOGY: report attached to summary ACTIVITY:[] Independent HOME MEDICATIONS: see med recc NEW MEDICATIONS:[See med rec] EMERGENCY INSTRUCTIONS: The patient was instructed to present to the nearest Emergency departmentr or call 911 once their symptoms will return or worsen Vice President Of News(s): Patient is 59 years old female with a past medical history of hypertension, hyperlipidemia, CHF, neuropathy, who came to [facility] for elective incarcerated ventral hernia repair with Dr Ko 10/12/24.Exploratory laparoscopy converted to exploratory laparotomy with lysis of adhesions of for approximately 1 hour, explantation of mesh, enteroraphy, component separation, ventral hernia repair with mesh on a hernia the the measured approximately 12 cm. Most recent vital signs temperature 97.7 pulse 87 respirations 17 blood pr essure 140/83 patient is on room air satting 93%. Sodium 142 potassium 3.6 CO2 31 BUN 15 creatinine 0.7 GFR 98. WBC 7.7 hemoglobin 13.3 hematocrit 39.8 platelets 246. Patient will be admitted under , and hospitalist will be managing overall patient's care. We will continue to monitor patient in the meantime a.m. labs. Throughout the hospitalization patient was able to tolerate GI soft diet. Electrolytes were replaced. WBC 8.6. Patient was cleared by the surgeon to be discharged home follow up with PCP in 2 to 3 days. Follow up with surgeon within one week.] Procedure(s): REVIEW OF SYSTEMS CONSTITUTIONAL: Denies fevers, chills, or night sweats. No unintentional weight loss reported. NEUROLOGICAL: Denies headache, amaurosis fugax, motor weakness, sensory deficit, vertigo/spinning sensation, gait abnormalities, or tremors. ENT: No hearing loss, otalgia, otorrhea, rhinitis, rhinorrhea, hoarseness, or sore throat. CARDIOVASCULAR: Denies any exertional angina, dyspnea on exertion, orthopnea, paroxysmal nocturnal dyspnea, palpitations, life-threatening arrhythmias, claudication. PULMONARY: Denies any shortness of breath, cough, phlegm/sputum, hemoptysis, pleuritic chest pain. SLEEP: Denies morning headaches, daytime somnolence or napping. Denies difficulty falling asleep, staying asleep, waking from sleep. Denies knowledge of snoring. GASTROINTESTINAL: Denies any type of dysphagia to either liquids or solids. Denies nausea, vomiting, pyrosis, early satiety, abdominal pain, diarrhea, constipation, or changes in stool consistency or caliber. Denies coffee-ground emesis, hematemesis, hematochezia, or melanotic stools. GENITOURINARY: Denies frequency, urgency, nocturia, hematuria or incontinence (Storage/Irritative symptoms.) Low urinary stream, straining to void, urinary intermittency or hesitancy, splitting of the voiding stream, terminal dribbling. ENDOCRINOLOGIC: Denies polyuria, polydipsia, polyphagia or heat/cold intolerances. HEMATOLOGIC: Denies thrombophilia/previous clots, or coagulopathy/bleeding disorders. ONCOLOGIC: Denies personal history of malignancy. DERMATOLOGIC: Denies rashes or pruritus. PSYCHIATRIC: Denies any suicidal or homicidal ideation. Denies hallucinations. PHYSICAL EXAM GENERAL APPEARANCE: The patient is awake, alert, and oriented, in no acute cardiopulmonary distress. NEUROLOGICAL: Cranial nerves II-XII grossly intact. Motor is 5/5 in bilateral upper and lower extremities proximal to distal. No sensory deficits. HEENT: Face is symmetric. Pupils are equal and reactive. Extraocular movements are intact. NECK: Supple. No JVD. No thyromegaly. No submental, submandibular, pre- /postauricular, occipital or supraclavicular lymphadenopathy. CHEST: Normal chest expansion. No Telemetry. LUNGS: Absence of any rales, rhonchi or any wheezing. CARDIOVASCULAR: Regular. S1 and S2 normal. No appreciable rubs, murmurs or gallops. ABDOMEN: Soft, nontender, and nondistended. There is no rebound, voluntary guarding, or rigidity. : Deferred. No Cooper. EXTREMITIES: Non-edematous and not cyanotic. No clubbing. Good capillary refill. SKIN: No skin breakdown. Assessment/Plan: ASSESSMENT: [ 10/12/24 Exploratory laparoscopy converted to exploratory laparotomy with lysis of adhesions of for approximately 1 hour, explantation of mesh, enteroraphy, component separation, ventral hernia repair with mesh on a hernia the the measured approximately [address] Shi Hypertension POA Uncontrolled diabetes mellitus type 2 with hypoglycemia POA Morbid obesity POA Gastritis Previous abdominal hernia repair History of sepsis History of peritonitis History of transaminitis] Home Medications: Active Scripts Methocarbamol (Robaxin) 750 Mg Tab, 1 TAB PO BID for 30 Days, #15 TAB 0 Refills Prov:PAYTON KO MD 10/14/24 Gabapentin (Gabapentin) 100 Mg Capsule, 1 CAP PO TID for 30 Days, #21 CAP 0 Refills Prov:PAYTON KO MD 10/14/24 Docusate Sodium (Colace) 100 Mg Capsule, 1 CAP PO BID for 30 Days, #30 CAP 0 Refills Prov:PAYTON KO MD 10/14/24 Tramadol HCl (Tramadol HCl ER) 100 Mg Cpbp.25.75, 50 MG PO Q6HPRN PRN for PAIN, #28 TAB 0 Refills Prov:PAYTON KO MD 10/14/24 Omeprazole (Omeprazole) 40 Mg Capsule.dr, 40 MG PO DAILY PRN for gerd, #90 CAP Prov:BINTA WELCH MD 06/04/23 Reported Medications Linaclotide (Linzess) 145 Mcg Capsule, 1 CAP PO DAILY PRN for CONSTIPATION for 30 Days, #30 CAP 0 Refills 10/12/24 Simvastatin (Simvastatin) 20 Mg Tablet, 1 TAB PO HS for 30 Days, #30 TAB 0 Refills 10/12/24 Progesterone,Micronized (Progesterone) 100 Mg Capsule, 1 CAP PO HS for 30 Days, #30 CAP 0 Refills 10/12/24 Gabapentin (Gabapentin) 100 Mg Capsule, 100 MG PO 2X/WEEK, CAP 06/04/23 Hydrochlorothiazide (Hydrochlorothiazide) 25 Mg Tablet, 25 MG PO DAILY, TAB 03/27/20 Losartan Potassium (Losartan Potassium) 100 Mg Tablet, 100 MG PO DAILY, TAB 03/27/20 Discontinued Reported Medications Lactobacillus Combo No.11 (Probiotic) 1 Each Cap.sprink, 1 EACH PO AM, CAP.SPRINK 06/04/23 Discontinued Scripts Simvastatin (Simvastatin) 40 Mg Tablet, 40 MG PO HS, #90 TAB Prov:BINTA WELCH MD 06/04/23 Levofloxacin (Levofloxacin) 500 Mg Tablet, 500 MG PO DAILY, #7 TAB 0 Refills Prov:BINTA WELCH MD 06/23/23 Metronidazole (Metronidazole) 500 Mg Tablet, 500 MG PO BID, #14 TAB 0 Refills Prov:BINTA WELCH MD 06/23/23 Tramadol Hcl (Tramadol HCl) 50 Mg Tablet, 50 MG PO DAILY, #30 TAB Prov:BINTA WELCH MD 06/21/23 Famotidine (Famotidine) 40 Mg Tablet, 40 MG PO DAILY, #90 TAB Prov:BINTA WELCH MD 06/21/23 Time spent arranging discharge: 31-60 minutes ATTESTATION BY PHYSICIAN I have seen and examined the patient. I reviewed the documentation, medical decision making, and treatment plan as noted by the mid-level provider above. I agree with the findings and plan of care. MD ELIZA Hdz [facility]NA [facility] Oct 14, 2024 12:33
--- NOTE | 2024-10-14 13:35 | NUR ---
DISCHARGE INSTRUCTIONS DISCHARGE INSTRUCTIONS REVIEWED AND GIVEN TO PATIENT. PATIENT VERBALIZED UNDERSTANDING. PATIENT STATES HER PHARMACY ALREADY CALLED HER THAT THEY RECEIVED PRESCRIPTION AND WILL HAVE MEDICATIONS READY TODAY AT 3PM. PATIENT STATES HER WILL BE PICKING THEM UP FOR HER. STATES HER IS ON HIS WAY TO PICK HER UP. STATES WILL CALL EARLY CHILDHOOD EDUCATION COORDINATOR LIGHT WHEN HE IS HERE AND SHE IS READY TO BE TRANSPORTED VIA WHEELCHAIR TO THEIR PRIVATE VEHICLE.
--- NOTE | 2024-10-14 13:50 | NUR ---
DISCHARGE PATIENT DISCHARGED HOME IN STABLE CONDITION, PATIENT TRANSPORTED VIA WHEELCHAIR TO PRIVATE VEHICLE WHERE HER AWAITS TO DRIVE HER HOME. PATIENT TRANSPORTED BY TECH. ISABELLA
== END 2024-10-14 13:50 | disposition home or self-care (01) | DRG 336 ==
LOC: DAH 07:49 → DAHIP 07:50 → DAH 07:50 → WSH 13:00
PROVIDERS: ADMIT Internal Medicine; ATTEND Internal Medicine
PROC: 0WJF4ZZ Inspection of Abdominal Wall, Percutaneous Endoscopic Approach (ICD-10-PCS; 2024-10-12)
PROC: 0DNU4ZZ Release Omentum, Percutaneous Endoscopic Approach (ICD-10-PCS; principal; 2024-10-12 09:22)
PROC: 0WUF0JZ Supplement Abdominal Wall with Synthetic Substitute, Open Approach (ICD-10-PCS; 2024-10-12 09:22)
DX: K43.9 Ventral hernia without obstruction or gangrene (principal); I13.0 Hypertensive heart and chronic kidney disease with heart failure and stage 1 through stage 4 chronic kidney disease, or unspecified chronic kidney disease; K43.0 Incisional hernia with obstruction, without gangrene; E11.22 Type 2 diabetes mellitus with diabetic chronic kidney disease; E11.649 Type 2 diabetes mellitus with hypoglycemia without coma; E66.01 Morbid (severe) obesity due to excess calories; E78.5 Hyperlipidemia, unspecified; K21.9 Gastro-esophageal reflux disease without esophagitis; K66.0 Peritoneal adhesions (postprocedural) (postinfection); I50.9 Heart failure, unspecified; K29.70 Gastritis, unspecified, without bleeding; N18.9 Chronic kidney disease, unspecified; Z53.31 Laparoscopic surgical procedure converted to open procedure; Z82.0 Family history of epilepsy and other diseases of the nervous system; Z82.3 Family history of stroke; Z82.49 Family history of ischemic heart disease and other diseases of the circulatory system; Z83.3 Family history of diabetes mellitus; Z68.39 Body mass index [BMI] 39.0-39.9, adult
CPT/HCPCS: 36415; 80048; 80053; 80076; 82140; 82550; 82948; 83036; 83605; 83735; 83880; 84145; 85025; 85610; 85730; 88300; A4344; A4450; C1781; J0690; J1100; J1885; J2003; J2175; J2250; J2405; J2704; J2710; J2795; J3010; J3490; J7030; J7120; A4215; A4216; A4221; A4222; A4223; A4600; A4649; A4663; A4930; A6260

== ENCOUNTER → 2024-11-17 | Outpatient (CLI) | payer OTHER ==
[~2024-11-17] MED LIST changes: +DOCU-116 PO; -LACT1CAP78 PO; +LINA145C PO; +METH-662 PO; +METH-811 PO; +PROG100C11 PO; +SIMV-43 PO; -SIMV-46 PO; +TRAM100C3 PO
[2024-11-17 08:19] LABS: ALBUMIN 3.3 g/dL (3.5-5.0); BILIRUBIN,TOTAL 0.4 mg/dL (0.2-1.0); CREATININE 0.7 mg/dL (0.5-1.0); POTASSIUM 3.4 mmol/L (3.5-5.1); TOTAL PROTEIN, SERUM 7.7 g/dL (6.0-8.3)
== END | disposition home or self-care (01) ==
LOC: LAB 07:11
PROVIDERS: ATTEND Internal Medicine
DX: E78.2 Mixed hyperlipidemia (principal)
CPT/HCPCS: 36415; 80053; 80061

== ENCOUNTER → 2024-12-26 | Outpatient (CLI) | payer OTHER ==
--- NOTE | 2024-12-27 09:48 | HMCIMG ---
SCREENING MAMMOGRAM REASON: Annual Exam COMPARISON: 12/22/2023 TECHNIQUE: CC and MLO views of the bilateral breasts were performed.CAD was performed as well. FINDINGS: Parenchymal density: The breasts are heterogeneously dense, which may obscure small masses. There are multiple small calcified fibroadenomas. There is a small nodule deep in the left breast with adjacent MicroMark clip, this is unchanged compared to prior study. There are no new focal nodules. There are no pathologic appearing calcifications. There is no evidence of architectural distortion or skin thickening. IMPRESSION: 1. Stable screening mammogram The patient was entered into a reminder system with a target due date for their next mammogram. BI-RADS CATEGORY 2: BENIGN FINDINGS Recommend monthly self breast exam as well as annual clinical examination. A negative x-ray should not delay biopsy if a dominant or clinically suspicious mass is present, since 8-10% of cancers are not identified by mammography. Dense breasts particularly, may obscure an underlying neoplasm. Some of these may be detected clinically and therefore, clinical examination is an essential part of breast evaluation.
== END | disposition home or self-care (01) ==
LOC: RAH 15:51
PROVIDERS: ATTEND Obstetrics & Gynecology
DX: Z12.31 Encounter for screening mammogram for malignant neoplasm of breast (principal); Z00.01 Encounter for general adult medical examination with abnormal findings; N63.20 Unspecified lump in the left breast, unspecified quadrant; R92.333 Mammographic heterogeneous density, bilateral breasts; D24.1 Benign neoplasm of right breast; D24.2 Benign neoplasm of left breast
CPT/HCPCS: 77067

== ENCOUNTER 2025-01-18 06:30 | Day surgery (SDC) | payer OTHER ==
[2025-01-18] VITALS (11 sets, daily range): BP systolic 85–128; BP diastolic 52–81; PULSE 62–83; RESP 15–17; TEMP 97.4–97.9
[~2025-01-18] VITALS: Ht 160 cm; Wt 96.2 kg
[~2025-01-18 06:30] MED LIST changes: -LINA145C PO; -METH-662 PO; -METH-811 PO; -TRAM100C3 PO
[2025-01-18] MEDS: 0.9%NACL 1000ML 1,000 ML IV ONE (06:52)
[2025-01-18] MEDS ORDERED: proPOFol 10 MG/ML 20ML VIAL IV ONE ×3 (08:11→08:40)
== END 2025-01-18 09:40 | disposition home or self-care (01) ==
LOC: ENDO 06:30 → DAH 06:30 → ENDO 09:40
PROVIDERS: ATTEND Internal Medicine Gastroenterology
DX: K59.04 Chronic idiopathic constipation (principal); D12.0 Benign neoplasm of cecum; D12.1 Benign neoplasm of appendix; K57.30 Diverticulosis of large intestine without perforation or abscess without bleeding; Z86.0100 Personal history of colon polyps, unspecified; I10 Essential (primary) hypertension; E66.9 Obesity, unspecified; K21.9 Gastro-esophageal reflux disease without esophagitis; E78.5 Hyperlipidemia, unspecified; K21.00 Gastro-esophageal reflux disease with esophagitis, without bleeding; K43.9 Ventral hernia without obstruction or gangrene; K44.9 Diaphragmatic hernia without obstruction or gangrene; Z79.899 Other long term (current) drug therapy; Z98.890 Other specified postprocedural states
CPT/HCPCS: 45380; 45385; J7030; J2704 ×3; A4620; A4215 ×2; A4223; A4222; A4221; A4663; A4606; J3490

== ENCOUNTER 2025-03-09 09:02 | Emergency (ER) | payer OTHER ==
[~2025-03-09] VITALS: Ht 160 cm; Wt 97.1 kg
[2025-03-09 09:31] LABS: BASOPHILS # (AUTO) 0.03 K/uL (0.00-0.20); BASOPHILS % (AUTO) 0.5 % (0.0-5.0); EOSINOPHILS # (AUTO) 0.07 K/uL (0.00-0.70); EOSINOPHILS % (AUTO) 1.2 % (0.0-8.0); HEMATOCRIT 40.7 % (36-48); IMMATURE GRANULOCYTE ABSOLUTE 0.01 K/uL (0-1); LYMPHOCYTES # (AUTO) 1.6 K/uL (1.0-4.8); LYMPHOCYTES % (AUTO) 27.4 % (21.0-51.0); MEAN CORPUSCULAR HEMOGLOBIN 29.7 pg (27.0-33.0); MEAN CORPUSCULAR HGB CONC 33.9 g/dL (32.0-36.0); MEAN CORPUSCULAR VOLUME 87.5 fL (79-99); MONOCYTES # (AUTO) 0.5 K/uL (0.1-1.0); MONOCYTES % (AUTO) 9.1 % (3.0-13.0); NEUTROPHILS # (AUTO) 3.6 K/uL (1.8-7.7); NEUTROPHILS % (AUTO) 61.6 % (40.0-77.0); PLATELET COUNT (AUTO) 237 K/uL (130-400); RED BLOOD CELL COUNT(AUTO) 4.65 MIL/uL (4.00-5.50); RED CELL DISTRIBUTION WIDTH 14.1 % (11.0-15.5); WHITE BLOOD COUNT (AUTO) 5.9 K/uL (4.8-10.8)
[2025-03-09 09:40] LABS: CARBON DIOXIDE 29 mmol/L (21-32); CHLORIDE 100 mmol/L (101-111); CREATININE 0.7 mg/dL (0.5-1.0); GLOMERULAR FILTR. RATE CALC 98 mL/min (>90); GLUCOSE,RANDOM 106 mg/dL (70-105); POTASSIUM 3.3 mmol/L (3.5-5.1); SODIUM SERUM 139 mmol/L (136-145); UREA NITROGEN, BLOOD 17 mg/dL (7-18)
--- NOTE | 2025-03-09 09:42 | ERN ---
General Chief Complaint: Headache Stated Complaint: HEADACHE Time Seen by MD: 09:12 History of Present Illness Initial Comments 59-year-old female who presents for headache. Patient reports a few months ago she had a significant back of the head headache. It resolved. She reports that this morning she woke up with the same headache. It is in the back of the head and throbbing. No vision changes. No focal neurologic deficits. She reports nausea without vomiting. She denies any recent trauma or falls. Denies blood thinners. She has never had any imaging done of her head. Allergies: Coded Allergies: No Known Allergies (Unverified Allergy, 09/07/13) No Known Drug Allergies (Unverified Allergy, 10/06/12) Home Meds Active Scripts Butalb/Acetaminophen/Caffeine (Fioricet) 50 Mg-325 Mg-40 Mg Tab, 1 TAB PO QID PRN for headache for 10 Days, #30 TAB Prov:CRISTOBAL LEONARDO DO 03/09/25 Docusate Sodium (Colace) 100 Mg Capsule, 1 CAP PO BID for 30 Days, #30 CAP 0 Refills Prov:PAYTON PINO MD 10/14/24 Omeprazole (Omeprazole) 40 Mg Capsule.dr, 40 MG PO DAILY PRN for gerd, #90 CAP Prov:BINTA WELCH MD 06/04/23 Reported Medications Gabapentin (Gabapentin) 100 Mg Capsule, 100 MG PO AM, CAP 01/17/25 Simvastatin (Simvastatin) 20 Mg Tablet, 1 TAB PO HS for 30 Days, #30 TAB 0 Refills 10/12/24 Progesterone,Micronized (Progesterone) 100 Mg Capsule, 1 CAP PO HS for 30 Days, #30 CAP 0 Refills 10/12/24 Hydrochlorothiazide (Hydrochlorothiazide) 25 Mg Tablet, 25 MG PO DAILY, TAB 03/27/20 Losartan Potassium (Losartan Potassium) 100 Mg Tablet, 100 MG PO DAILY, TAB 03/27/20 Past Medical History Past Medical History: High Cholesterol, Hypertension Medical History Other: GASTRITIS Past Surgical History: Hysterectomy, Other Surgical History Other: HERNIA Social History Social History: Negative ROS Dictation CONSTITUTIONAL: No chills, no fever, no weakness, no diaphoresis, no malaise. HEAD/FACE: No signs of trauma. EENT: No eye pain, no blurred vision, no tearing, no double vision, no ear pain, no ear discharge, no nose pain, no nasal congestion, no throat pain, no throat swelling, no mouth pain. RESPIRATORY: No cough, no orthopnea, no SOB, no stridor, no wheezing. CARDIOVASCULAR: No chest pain, no edema, no palpitations, no syncope. GASTROINTESTINAL/ABDOMINAL: No abdominal pain, no constipation, no diarrhea, no nausea, no vomiting. GENITOURINARY: No abnormal discharge, no dysuria, no frequent urination, no hematuria. No complaints of pain in the genitals. MUSCULOSKELETAL: No back pain, no gout, no joint pain, no joint swelling, no muscle pain, no muscle stiffness, no neck pain. INTEGUMENTARY: No change in color, no change in hair/nails, no dryness, no lesion, no lumps, no rash. NEUROLOGICAL/PSYCH: Back of head headache HEMATOLOGIC/LYMPHATIC: Not anemic, no history of blood clots, no apparent bleeding, no bruising, glands not swollen. All Systems Negative, Except as Noted. Physical Exam Physical Exam Dictation VITAL SIGNS: Reviewed. GENERAL APPEARANCE: Alert, oriented x3, no acute distress HEAD AND FACE: Non-traumatic. EYES: PERRL, pink conjunctivas, eyelid no trauma, anterior chamber clear. EARS: Pinnas intact and no signs of trauma or erythema. Ear canals clear and no discharge. TMs no erythema. NOSE: No discharge, no bleeding. OROPHARYNX: Mouth normal, teeth no caries, tongue pink. Pharynx clear, no erythema. Tonsils no exudates, no abscesses noted. Mucous membrane moist. NECK: Supple, non-tender, no thyromegaly, no masses, no JVD, no bruits. BREAST: Deferred. CHEST: No tenderness, no crepitus, no paradoxical movement, no retractions. LUNGS: Clear, well-ventilated, symmetric, no rales, no wheezing, no rhonchi, no stridor, good breath sounds bilaterally. HEART: Regular rate, regular rhythm, no murmur, no gallops. VASCULAR: No peripheral edema. ABDOMEN: Soft, positive bowel sounds, nondistended, no guarding, nontender, no rebound, no masses no hepatomegaly, no splenomegaly, no Karimi's sign, no hernias. RECTAL: Deferred. GENITAL: Deferred. NEUROLOGICAL: Normal speech, gross motor function intact, gross sensory function intact. MUSCULOSKELETAL: Neck nontender, full range of motion, back nontender, full range of motion. EXTREMITIES: Nontender, full range of motion. SKIN: Color pink, dry, no turgor, no rash, no lacerations, no abrasions, no contusions. LYMPHATICS: Deferred. Results Laboratory and Microbiology Lab and Micro Result Laboratory Tests Test 03/09/25 09:25 White Blood Count 5.9 K/uL (4.8-10.8) Red Blood Count 4.65 MIL/uL (4.00-5.50) Hemoglobin 13.8 g/dL (12.0-16.0) Hematocrit 40.7 % (36-48) Mean Corpuscular Volume 87.5 fL (79-99) Mean Corpuscular Hemoglobin 29.7 pg (27.0-33.0) Mean Corpuscular Hemoglobin Concent 33.9 g/dL (32.0-36.0) Red Cell Distribution Width 14.1 % (11.0-15.5) Platelet Count 237 K/uL (130-400) Mean Platelet Volume 9.0 fL (7.5-10.5) Immature Granulocyte % (Auto) 0.2 % (0-1) Neutrophils (%) (Auto) 61.6 % (40.0-77.0) Lymphocytes (%) (Auto) 27.4 % (21.0-51.0) Monocytes (%) (Auto) 9.1 % (3.0-13.0) Eosinophils (%) (Auto) 1.2 % (0.0-8.0) Basophils (%) (Auto) 0.5 % (0.0-5.0) Neutrophils # (Auto) 3.6 K/uL (1.8-7.7) Lymphocytes # (Auto) 1.6 K/uL (1.0-4.8) Monocytes # (Auto) 0.5 K/uL (0.1-1.0) Eosinophils # (Auto) 0.07 K/uL (0.00-0.70) Basophils # (Auto) 0.03 K/uL (0.00-0.20) Absolute Immature Granulocyte (auto 0.01 K/uL (0-1) Nucleated Red Blood Cells 0.0 % (0.0-0.19) Sodium Level 139 mmol/L (136-145) Potassium Level 3.3 mmol/L (3.5-5.1) L Chloride Level 100 mmol/L (101-111) L Carbon Dioxide Level 29 mmol/L (21-32) Blood Urea Nitrogen 17 mg/dL (7-18) Creatinine 0.7 mg/dL (0.5-1.0) Glomerular Filtration Rate Calc 98 mL/min (>90) Random Glucose 106 mg/dL (70-105) H Total Calcium 9.2 mg/dL (8.5-10.1) Total Creatine Kinase 80 U/L (21-232) # Troponin I High Sensitivity < 4.0 ng/L (4-50) L MDM CC: occipital headache Historian: patient Comorbidities: High cholesterol, hypertension, hysterectomy, hernia repair Limitations by social determinants of health: None Differential diagnosis: Brain bleed, benign headache, migraine, other. Clinical exam is unremarkable. NIHSS of 0. Cranial nerves are intact. Vital signs: Mild hypertension 165/103 otherwise vital signs stable. No signs of meningitis or any life-threatening pathology at this time. Labs (independently interpreted by me): The CBC is normal, metabolic panel normal, CK normal, troponin normal CT head without contrast ( independently interpreted by me ): No acute bleeding or abnormalities Treatment in ED: 1 L of lactated Ringer's, 5 mg Compazine, Benadryl IV, Toradol IV. Re-evaluation: Improvement of symptoms. I suspect the patient has a migraine headache. There is no life threats at this time. No signs of subarachnoid hemorrhage, tumor, mass, meningitis, or other life-threatening cause of the headaches. Plan: DC with a prescription for Fioricet recommend PCP follow up. ED Course Orders Procedure Category Date Status Time Lactated Ringers PHA 03/09/25 Complete 1000ml (Lactated 09:30 Cardiac Panel LAB 03/09/25 Complete 09:21 Cbc With Differential LAB 03/09/25 Complete 09:21 Basic Metabolic Panel LAB 03/09/25 Complete 09:21 Prochlorperazine PHA 03/09/25 Complete 10mg/2ml Inj 09:30 Diphenhydramine Hcl PHA 03/09/25 Complete (Benadryl Inj) 09:30 Ketorolac PHA 03/09/25 Complete Tromethamine 15mg/Ml 09:30 Ct Head/Brain W/O CT 03/09/25 Resulted Contrast 09:21 Current Medications Medications (Trade) Dose Ordered Sig/Юлия Route PRN Reason Start Time Stop Time Status Last Admin Dose Admin Diphenhydramine HCl (BENAdryl INJ) 25 mg ONCE ONCE IV 03/09/25 09:30 03/09/25 09:31 DC 03/09/25 09:45 Ketorolac Tromethamine (toRADol) 15 mg ONCE ONCE IV 03/09/25 09:30 03/09/25 09:31 DC 03/09/25 09:45 Lactated Ringer's 1,000 ml @ 0 mls/hr ONCE ONCE IV 03/09/25 09:30 03/09/25 09:31 DC 03/09/25 09:45 Prochlorperazine Edisylate (Compazine 10mg/ 2ml Inj) 5 mg ONCE ONCE IV 03/09/25 09:30 03/09/25 09:31 DC 03/09/25 09:44 Vital Signs Date Time Temp Pulse Resp B/P (MAP) Pulse Ox O2 Delivery O2 Flow Rate FiO2 03/09/25 09:47 97.5 91 18 151/85 98 Room Air* 0 21 03/09/25 09:03 98.8 97 20 165/103 99 Room Air 0 DX & DISP Disposition: Discharge Departure Impression: Primary Impression: Migraine headache Condition: Stable Scripts Butalb/Acetaminophen/Caffeine (Fioricet) 50 Mg-325 Mg-40 Mg Tab 1 TAB PO QID PRN for headache for 10 Days, #30 TAB Prov: CRISTOBAL LEONARDO DO 03/09/25 Additional Instructions: Your symptoms are most consistent with a migraine headache. Your vital signs has been stable here in the ER other than a mild hypertension. Follow up with your primary doctor regarding your high blood pressure. Your lab work (CBC, metabolic panel, CK, troponin) is normal. The CT scan of your brain is normal. You received IV fluids, IV Compazine, IV Toradol, and IV diphenhydramine here in the ER for your headache. I have prescribed Fioricet, which is an migraine medication. You can take two tabs up to 4 times a day with a glass of water as needed for headache. If you continue with the headaches I recommend that you follow up with your primary doctor to discuss your recent ER visit. Referrals: BINTA WELCH MD (PCP) CRISTOBAL LEONARDO DO Mar 09, 2025 09:42
[2025-03-09] MEDS: PROCHLORPERAZINE 10MG/2ML INJ IV ONE (09:44)
[2025-03-09] MEDS: ketOROlac 15MG/ML VIAL (15MG/ML) IV ONE (09:45)
[2025-03-09] MEDS: DiphenhydrAMINE HCL 50 MG/ML VIAL IV ONE (09:45)
[2025-03-09] MEDS: LACTATED RINGERS 1000ML 1,000 ML IV ONE (09:45)
[2025-03-09 09:48] LABS: CREATINE KINASE, TOTAL 80 U/L (21-232)
[2025-03-09] MEDS ORDERED: FIORIT PO (10:48)
--- NOTE | 2025-03-09 11:03 | HMCIMG ---
CT HEAD/BRAIN W/O CONTRAST HISTORY: Headaches COMPARISON: None TECHNIQUE: Multiple sequential axial images of the head were obtained from the base of the skull through vertex. Patient was not given contrast through intravenous route. FINDINGS: The ventricles and extraventricular CSF spaces are nondilated for patient's age. There is no midline shift, mass effect or herniation. No acute intracranial bleed is seen. Visualized portion of the paranasal sinuses are grossly within normal limits. IMPRESSION: 1. No acute intracranial bleed is seen. CT was performed with one or more following dose reduction techniques: automated exposure control, adjustment of the mA and kv according to patient's size, or use of a iterative reconstruction technique.
[2025-03-09 11:28] VITALS: BP 144/82; PULSE 69; RESP 20; TEMP 98; O2SAT 98
== END 2025-03-09 11:39 | disposition home or self-care (01) ==
LOC: EDH 09:02
DX: G43.909 Migraine, unspecified, not intractable, without status migrainosus (principal); E78.00 Pure hypercholesterolemia, unspecified; I10 Essential (primary) hypertension; Z90.710 Acquired absence of both cervix and uterus; Z98.890 Other specified postprocedural states; Z79.890 Hormone replacement therapy; Z79.899 Other long term (current) drug therapy; Z87.19 Personal history of other diseases of the digestive system
CPT/HCPCS: 99285; 96374; 70450; 96361; 96375; 82550; 84484; 80048; 85025; 36415; J1885; J7120; J1200; J0780

== ENCOUNTER → 2025-05-31 | Outpatient (CLI) | payer OTHER ==
[~2025-05-31] MED LIST changes: +FIORIT PO
--- NOTE | 2025-06-08 08:24 | HMCIMG ---
STUDY PERFORMED: BD Bone Density DEXA Axial Skeleton TECHNIQUE: [employer] Dual Energy X-ray absorptiometry (DEXA) COMPARISON: None available. FINDINGS: Lumbar Spine L1-L4 Density(g/cm2): 0.943 T-score: -0.9 Z-score: 0.6 Left Femoral Neck Density(g/cm2): 0.773 T-score: -0.9 Z-score: 0.5 Total Proximal Femur Density(g/cm2): 0.937 T-score: -0.2 Z-score: 0.8 INTERPRETATION: The bone mineral density in the lumbar spine is in the normal range. The bone mineral density of the left hip is in the normal range. COMMENTS: T-scores are a means of evaluating bone mineral density relative to young adult population and are defined as the number of standard deviations of the mean. T-scores at or above -1.0 are considered normal. T-scores between -1.0 and -2.5 are consistent with osteopenia. T-scores at or below -2.5 are consistent with osteoporosis. T-score values below -2.0 are thought to be associated with an increased risk of fracture. Z-scores are related to age-matched controls. The study does not distinguish osteoporosis from other causes of decreased bone density such as osteomalacia or multiple myeloma. Therefore, if clinically indicated or Z-scores are less than -2.0, additional metabolic studies may be appropriate. RECOMMENDATIONS: National Osteoporosis Foundation (NOF) guidelines recommend initiating therapy to reduce fracture risk in women with BMD: T-Score below -2 SD T-Score Below -1.5 with other risks factors present NOF guidelines recommend all people with T score of -2.5 and below (osteoporosis) consider taken osteoporosis medication. The NOF recommends adults under age 50 need 1,000 mg of calcium and 400-800 IU of vitamin D daily. Adults 50 and over need 1,200 mg of calcium and 800-1000 IU of vitamin D daily. Effective therapies for the prevention of osteoporosis include bisphosphonates (Fosamax and Actonel) and Evista. Hormone therapy may be an option based on review of risks and benefit of treatment. People with diagnosed cases of osteoporosis or at high risk for fracture should have regular bone mineral density tests. For patients eligible for Medicare, routine testing is allowed once every 2 years. The testing frequency can be increased to one year for patients who have rapidly progressing disease, those who are receiving or discontinuing medical therapy to restore bone mass, or have additional risk factors. /[place]
== END | disposition home or self-care (01) ==
LOC: RAH 14:59
PROVIDERS: ATTEND Internal Medicine
DX: N95.9 Unspecified menopausal and perimenopausal disorder (principal)
CPT/HCPCS: 77080

== ENCOUNTER 2025-06-21 14:52 | Emergency (ER) | payer OTHER ==
[~2025-06-21] VITALS: Ht 160 cm; Wt 99.8 kg
--- NOTE | 2025-06-21 15:06 | ERN ---
ED Note History of Present Illness Stated Complaint: LEG PAIN,POPPING Chief Complaint: Lower Extremity Pain/Injury Time Seen by MD: 14:53 Dictation: PATIENT IS A 60-YEAR-OLD FEMALE SAID SHE WAS WALKING AT A LOCAL STORE WITH THE IN THE PARKING LOT, SHE FELT A SUDDEN POP AND PAIN TO THE POSTERIOR RIGHT CALF. SHE HAS BEEN UNABLE TO WEIGHT BEAR SINCE. HAS A HISTORY OF A LEFT ACHILLES TENDON INJURY WITH SURGERY YEARS AGO IN [facility]. SHE HAS TAKEN NOTHING PRIOR TO ARRIVAL FOR PAIN. NO FOOT DROP Allergies: Coded Allergies: No Known Allergies (Unverified Allergy, 09/07/13) No Known Drug Allergies (Unverified Allergy, 10/06/12) Home Meds Active Scripts Butalb/Acetaminophen/Caffeine (Fioricet) 50 Mg-325 Mg-40 Mg Tab, 1 TAB PO QID PRN for headache for 10 Days, #30 TAB Prov:CRISTOBAL LEONARDO DO 03/09/25 Docusate Sodium (Colace) 100 Mg Capsule, 1 CAP PO BID for 30 Days, #30 CAP 0 Refills Prov:PAYTON PINO MD 10/14/24 Omeprazole (Omeprazole) 40 Mg Capsule.dr, 40 MG PO DAILY PRN for gerd, #90 CAP Prov:BINTA WELCH MD 06/04/23 Reported Medications Gabapentin (Gabapentin) 100 Mg Capsule, 100 MG PO AM, CAP 01/17/25 Simvastatin (Simvastatin) 20 Mg Tablet, 1 TAB PO HS for 30 Days, #30 TAB 0 Refills 10/12/24 Progesterone,Micronized (Progesterone) 100 Mg Capsule, 1 CAP PO HS for 30 Days, #30 CAP 0 Refills 10/12/24 Hydrochlorothiazide (Hydrochlorothiazide) 25 Mg Tablet, 25 MG PO DAILY, TAB 03/27/20 Losartan Potassium (Losartan Potassium) 100 Mg Tablet, 100 MG PO DAILY, TAB 03/27/20 Past Medical History Past Medical History: High Cholesterol, Hypertension Additional Past Medical Hx: GASTRITIS Surgical History: Hysterectomy, Other Surgical History Other: HERNIA Social History: Negative History: Not Applicable RN Note Reviewed/Agreed w/PFSH: Yes Review of System Dictation CONSTITUTIONAL: NEGATIVE EXCEPT FOR HPI HEAD/FACE: NEGATIVE EXCEPT FOR HPI EENT: NEGATIVE EXCEPT FOR HPI RESPIRATORY: NEGATIVE EXCEPT FOR HPI GASTROINTESTINAL/ABDOMINAL: NEGATIVE EXCEPT FOR HPI GENITOURINARY: NEGATIVE EXCEPT FOR HPI MUSCULOSKELETAL: NEGATIVE EXCEPT FOR HPI RIGHT CALF PAIN INTEGUMENTARY: NEGATIVE EXCEPT FOR HPI NEUROLOGICAL/PSYCH: NEGATIVE EXCEPT FOR HPI HEMATOLOGIC/LYMPHATIC: NEGATIVE EXCEPT FOR HPI ALL SYSTEMS NEGATIVE, EXCEPT NOTED ABOVE. 13 POINT REVIEW OF SYSTEMS ASSESSED AND ALL NEGATIVE EXCEPT FOR ABOVE. Initial Vital Sign VS Vital Signs Date Time Temp Pulse Resp B/P (MAP) Pulse Ox O2 Delivery O2 Flow Rate FiO2 06/21/25 14:56 97.9 97 16 133/70 97 Room Air 0 06/21/25 16:18 21 Physical Exam Dictation VITAL SIGNS REVIEWED GENERAL APPEARANCE: ALERT, ORIENTED X 3, MODERATE ACUTE DISTRESS, WELL DEVELOPED, NOURISHED. HEAD AND FACE: NON-TRAUMATIC. EYES: PERRL, PINK CONJUNCTIVAS, EYELID NO TRAUMA, ANTERIOR CHAMBER WITH ARCUS SENILIS. EARS: PINNAS INTACT AND NO SIGNS OF TRAUMA OR ERYTHEMA EAR CANALS CLEAR AND NO DISCHARGE TM NO ERYTHEMA NOSE: NO DISCHARGE, NO BLEEDING. OROPHARYNX: MOUTH NORMAL, TONGUE PINK, PHARYNX CLEAR,NO ERYTHEMA, TONSILS NO EXUDATES, NO ABSCESSES NOTED, MUCOUS MEMBRANE MOIST NECK: SUPPLE, NON-TENDER, NO THYROMEGALY, NO MASSES, NO JVD, NO BRUITS BREAST:DEFERRED CHEST:NO TENDERNESS, NO CREPITUS, NO PARADOXICAL MOVEMENT, NO RETRACTIONS LUNGS:CLEAR, WELL-VENTILATED, SYMMETRIC, NO RALES, NO WHEEZING, NO RHONCHI, NO STRIDOR, GOOD BREATH SOUNDS BILATERALLY HEART: REGULAR RATE, REGULAR RHYTHM, NO MURMUR, NO GALLOPS VASCULAR: NO PERIPHERAL EDEMA, ABDOMEN: SOFT, POSITIVE BOWEL SOUNDS, NONDISTENDED, NO GUARDING, NONTENDER, NO REBOUND, NO MASSES NO HEPATOMEGALY, NO SPLENOMEGALY, NO SINHA'S SIGN, NO HERNIAS. RECTAL: DEFERRED GENITAL: DEFERRED NEUROLOGICAL: NORMAL SPEECH, MOTOR FUNCTION INTACT, SENSORY FUNCTION INTACT MUSCULOSKELETAL: NECK NONTENDER, FULL RANGE OF MOTION, BACK NONTENDER, FULL RANGE OF MOTION, EXTREMITIES: TENDERNESS WHILE SWELLING TO RIGHT CALF., DECREASED RANGE OF MOTION TO RIGHT LOWER EXTREMITY SECONDARY TO PAIN. SKIN: COLOR PINK, DRY, NO TURGOR, NO RASH, NO LACERATIONS, NO ABRASIONS, NO CONTUSIONS. LYMPHATIC: DEFERRED Results (Laboratory/Radiology) Laboratory/Radiology PATIENT: ZHANG WALL MR#: [id number] : 1965 SEX: F AGE: 60 LOCATION: [facility] ORDER 1503 STATUS: REG ER REPORT#: [id number] SERVICE 1501 REASON: RIGHT POSTERIOR CALF PAIN AFTER HEARING A POP THIS MORNING ORDERING PHYSICIAN: LINDA POND INTER COM SERVICER PROCEDURE: SOFT LOW E - US SOFT TISSUE LOWER EXTREMITY US SOFT TISSUE LOWER EXTREMITY CLINICAL HISTORY: RIGHT POSTERIOR CALF PAIN AFTER HEARING A POP THIS MORNING hearing a pop today COMPARISON: None TECHNIQUE: Grayscale imaging of the hips was performed with and without stress. FINDINGS: Right right knee and area of concern demonstrate near the medial condyle distal semitendinosus and semimembranosus tendon insertion is a fluid collection possibly from a small therapy. IMPRESSION: Finding as described above Labs Reviewed?: Yes ED Course ED Course Orders Procedure Category Date Status Time Us Soft Tissue Lower US 06/21/25 Resulted Extremity 15:01 Apply Ice Pack To: CPOE 06/21/25 Transmitted (Er) 15:01 Crutches W/Training CPOE 06/21/25 Transmitted (Er) 15:01 Acetaminophen With PHA 06/21/25 Complete Codeine (Tylenol-Code 15:30 Knee Immobilizer ALON 06/21/25 In Process 16:44 Current Medications Medications (Trade) Dose Ordered Sig/Юлия Route PRN Reason Start Time Stop Time Status Last Admin Dose Admin Acetaminophen/ Codeine Phosphate (TYLenol-coDEINE TAB) 2 tab ONCE ONCE PO 06/21/25 15:30 06/21/25 15:31 DC 06/21/25 16:54 Vital Signs Date Time Temp Pulse Resp B/P (MAP) Pulse Ox O2 Delivery O2 Flow Rate FiO2 06/21/25 16:18 97.9 87 18 130/75 97 Room Air* 0 21 06/21/25 14:56 97.9 97 16 133/70 97 Room Air 0 1700/knee immobilizer placed to right knee. Distal neurovascular CMS intact post placement. This was placed by the lighting engineering technician. Discussed findings with patient and her she is aware to follow up with Dr. Jane Villalobos and no weight-bearing until cleared by Dr. Villalobos. Medical Decision Making MDM Medical discharge making based on ultrasound of right lower extremity due to pop Fluid collection consist when possible tear Immobilizer placed in patient given crutches Referred to Dr. Jane Villalobos, orthopedic surgeon We will provide Tylenol with codeine for severe pain. DX & DISP Disposition: Discharge Departure Impression: Primary Impression: Acute internal derangement of right knee Condition: Stable Scripts Acetaminophen with Codeine (Acetaminophen-Cod #3 Tablet) 300 Mg-30 Mg Tablet 1 TAB PO Q4H PRN for Moderate to severe pain, #20 TAB 0 Refills Prov: LINDA POND NP 06/21/25 Referrals: BINTA WELCH MD (PCP) JANE VILLALOBOS MD Time of Disposition: 17:02 I have reviewed the case, and I agree with, Diagnosis and Plan LINDA POND NP Jun 21, 2025 15:06
--- NOTE | 2025-06-21 16:13 | HMCIMG ---
US SOFT TISSUE LOWER EXTREMITY CLINICAL HISTORY: RIGHT POSTERIOR CALF PAIN AFTER HEARING A POP THIS MORNING hearing a pop today COMPARISON: None TECHNIQUE: Grayscale imaging of the hips was performed with and without stress. FINDINGS: Right right knee and area of concern demonstrate near the medial condyle distal semitendinosus and semimembranosus tendon insertion is a fluid collection possibly from a small therapy. IMPRESSION: Finding as described above
[2025-06-21 16:18] VITALS: BP 130/75; PULSE 87; RESP 18; TEMP 97.9; O2SAT 97
--- NOTE | 2025-06-21 16:59 | NUR ---
RT KNEE IMMOBILIZER PLACED, PT TOLERATED WELL
--- NOTE | 2025-06-21 17:02 | NUR ---
CRUTCHES GIVEN TO PT, AND PT EDUCATED ON USE
[2025-06-21] MEDS ORDERED: ACET-2079 PO (17:03)
== END 2025-06-21 17:10 | disposition home or self-care (01) ==
LOC: EDH 14:52
DX: M23.8X1 Other internal derangements of right knee (principal); E78.00 Pure hypercholesterolemia, unspecified; I10 Essential (primary) hypertension; Z79.890 Hormone replacement therapy; Z79.899 Other long term (current) drug therapy; Z90.710 Acquired absence of both cervix and uterus
CPT/HCPCS: 76882; 99284

== ENCOUNTER → 2025-06-27 | Outpatient (CLI) | payer OTHER ==
[~2025-06-27] MED LIST changes: +ACET-2079 PO
--- NOTE | 2025-06-27 16:06 | HMCIMG ---
EXAM: MR RIGHT KNEE WITHOUT CONTRAST CLINICAL HISTORY: 60-year-old female unspecified internal derangement of the right knee TECHNIQUE: Multiplanar multisequence magnetic resonance images were obtained WITHOUT contrast. CONTRAST: None COMPARISON: None FINDINGS: JOINTS: Small joint effusion. 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 BONE: No acute fracture or focal osseous lesion. SOFT TISSUES: Grade 2 sprain of the medial collateral ligament. Longitudinal tear of the posterior horn of the medial meniscus with horizontal component of the body. Small villalobos's cyst. IMPRESSION: 1. Longitudinal tear of the posterior horn of the medial meniscus with a horizontal component of the body. 2. Grade 2 sprain of the medial collateral ligament. 3. 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 4. Small joint effusion. 5. Small Villalobos's cyst. /[place]
== END | disposition home or self-care (01) ==
LOC: RAH 13:11
PROVIDERS: ATTEND Internal Medicine
DX: S83.241A Other tear of medial meniscus, current injury, right knee, initial encounter (principal); M23.91 Unspecified internal derangement of right knee; M71.21 Synovial cyst of popliteal space [Baker], right knee; M25.461 Effusion, right knee; M94.261 Chondromalacia, right knee; X58.XXXA Exposure to other specified factors, initial encounter; Y93.89 Activity, other specified; Y92.89 Other specified places as the place of occurrence of the external cause; Y99.8 Other external cause status
CPT/HCPCS: 73721